=== PATIENT | female | born 1985 | race Caucasian/White ===

== ENCOUNTER 2023-05-12 14:13 | Inpatient (IN) ==
[2023-05-12] MEDS ORDERED: NIFEdipine 10 MG CAP PO STA ×2 (15:13→19:43)
[2023-05-12] MEDS ORDERED: MAG SULFATE 4GM BOLUS FROM BAG IV ONE (15:26)
[2023-05-12 15:31] LABS: Basophils # (auto) 0.02 K/uL (0-0.2); Basophils % (auto) 0.2 %; Eosinophils # (auto) 0.03 K/uL (0-0.50); Eosinophils % (auto) 0.3 %; Hematocrit (blood only) 33.4 % (37.0-47.0); Hemoglobin 11.5 g/dl (12.0-16.0); Immature Granulocytes # (auto) 0.14 K/uL (0.01-0.20); Immature Granulocytes % (auto) 1.2 %; Lymphocytes # (auto) 1.61 K/uL (1.2-3.4); Lymphocytes % (auto) 13.9 %; Mean Corpuscular Hemoglobin 30.6 pg (25.0-34.0); Mean Corpuscular Hgb Conc 34.4 g/dL (32.0-36.0); Mean Corpuscular Volume 88.8 fL (80.0-100.0); Monocytes # (auto) 1.03 K/uL (0.11-0.59); Monocytes % (auto) 8.9 %; Neutrophils # (auto) 8.72 K/uL (1.40-6.50); Neutrophils % (auto) 75.5 %; Platelet Count 235 K/uL (130-400); RDW Standard Deviation 42.4 fL (36.4-46.3); Red Blood Count 3.76 M/uL (4.20-5.40); White Blood Count 11.55 K/ul (4.8-10.8)
[2023-05-12 15:48] LABS: Albumin Level 3.1 gm/dl (3.4-5.0); BUN Creatinine Ratio 14.3 (10-20); Bilirubin,Total 0.3 mg/dl (0.2-1.0); Calcium 9.3 mg/dl (8.6-10.3); Creatinine Clr Calc Pharmacy 282.5 ml/min; Est GFR (Non-African American) 120.8 ml/min; Globulin 3.2 gm/dl (2.5-4.0); Potassium 4.4 mmol/L (3.5-5.1); Total Protein 6.3 gm/dl (6.0-8.3)
[2023-05-12] MEDS: MAGNESIUM SULFATE / WTR 40 GM/1,000 ML BAG IV SCH (16:13)
[2023-05-12] MEDS: LACTATED RINGER'S 1,000 ML IV PRN (16:13)
[2023-05-12 16:19] LABS: Total Protein Urine Random 166.8 mg/dl (0-11.9)
[2023-05-12 16:24] LABS: Creatinine Urine Random 24.9 mg/dl; Protein Creatinine Ratio Urine 6.7 (0-0.2)
[2023-05-12] MEDS ORDERED: OXYTOCIN 30 UNITS/500 ML BAG IV PRN (17:17)
[2023-05-12] MEDS ORDERED: LIDOCAINE 1% LOCAL 20 ML VIAL INFIL PRN (17:17)
[2023-05-12] MEDS: OXYTOCIN 30 UNITS/500 ML BAG IV PRN (17:34)
--- NOTE | 2023-05-12 17:35 | History & Physical Report ---
Date of Service May 12, 2023 Assessment & Plan (1) Pre-eclampsia in third trimester: Plan: patient meets criteria for pre-eclampsia with severe features urine protein/creatinine ratio is 6.8 will begin IOL- cervical balloon successfully placed and pitocin induction has been started MgSO4 bolus and now 2gms infusion running. will do GBS and start PCN G prophylaxis pending results epidural analgesia when requested as long as platelet count remains WNL. anticipate vaginal History of Present Illness Primary Care Provider: Marilynn Avila Patient is a 37 yo female EDC 06/12/23 who presented to the office for her scheduled NSt at 35 4/7 weeks and was found to have elevated BP of 148/102 after resting for at least 5 minutes. she was also found to have 2+ proteinuria. She denies any PET symptoms. She did have a mild headache this weekend which resolved without meds. Elevated BP and 2+ proteinuria is confirmed on evaluation in L&D. She received 20mg Nifedipine after 2 BP's were in the severe range. BP then came down to 160/92 and on repeat it was 133/82. was complicated by obesity and AMA status. testing has been reassuring. GBS status is unknown as it was to be done next week. Allergies Allergy/AdvReac Type Severity Reaction Status Date / Time acetaminophen [From Vicodin] Allergy Verified 05/08/23 13:59 hydrocodone [From Vicodin] Allergy Verified 05/08/23 13:59 hydromorphone [From Dilaudid] Allergy Verified 05/08/23 13:59 Home Medications Medication Instructions Recorded Confirmed Type cholecalciferol (vitamin D3) 10,000 PO 03/04/23 05/08/23 History citalopram 20 mg tablet 10 mg PO DAILY 03/04/23 05/12/23 History magnesium PO 03/04/23 05/08/23 History prenat.vits,valerie,vgj-lpcg-tbrxx 1 tab PO DAILY 03/04/23 05/12/23 History famotidine 10 mg tablet 10 mg PO DAILY 05/12/23 05/12/23 History Patient History Surgical History S/P ACL repair S/P wisdom tooth extraction Family History Father Melanoma Hypertension Other Epilepsy Social History Smoking Status: Never smoker Do You Dip or Chew Tobacco: No; Hx Alcohol Use: No Hx Substance Use: No Preferred Language: Israeli Communication Ability: Effective Brush Maker Required: No Beliefs That Will Affect Care: None marital status: marital status details: Hao Tejeda (37) [phone] Current Living Situation: Spouse Current Living Situation Comment: lives with spouse, 2 cats, dogs, horses, spouse to change litter current occupational status: unemployed Feels Safe at Home: Yes Safety Concerns: Feels Safe At This Time Review of Systems All systems reviewed & are unremarkable except as noted in HPI & below Physical Exam Constitutional: WD/WN, vitals as above Psychiatric: A+Ox3, euthymic affect Genitourinary: OB Exam Abdomen: + vertex and + estimated weight (5-6 pounds); no irregular contractions Manual OB Exam: + cervical dilation fingertip, + cervical effacement 50% and + station high (-3) OB Exam Monitor Tracing: + external FHT monitor used, + external uterine monitor used, + category I and + normal FHT variability patient agrees to placement of cervical balloon - speculum was placed vaginally and cervix visualized. the barnhart catheter was inserted into the internal os and 40 cc's of sterile water placed in the balloon. the catheter was then placed on traction and secured to her right thigh. patient tolerated the procedure well. Results & Data Vital Signs (Past 12 Hours) Vital Signs Temp Pulse Resp BP Pulse Ox 05/12/23 16:00 18 05/12/23 15:50 18 05/12/23 14:41 99.0 F 05/12/23 17:18 104 H 99 05/12/23 17:13 105 H 98 05/12/23 17:08 112 H 175/99 H 99 05/12/23 17:03 109 H 99 05/12/23 16:58 108 H 98 05/12/23 16:50 99 H 98 05/12/23 16:45 102 H 99 05/12/23 16:40 105 H 99 05/12/23 16:39 105 H 141/78 H 05/12/23 16:35 110 H 99 05/12/23 16:30 107 H 18 99 05/12/23 16:25 109 H 99 05/12/23 16:23 110 H 133/81 05/12/23 16:20 107 H 98 05/12/23 16:15 106 H 97 05/12/23 16:10 106 H 97 05/12/23 16:08 106 H 132/80 05/12/23 16:05 107 H 98 05/12/23 16:00 112 H 99 05/12/23 15:55 103 H 99 05/12/23 15:53 102 H 140/82 05/12/23 15:38 89 162/92 H 05/12/23 15:11 98 H 203/109 H 05/12/23 15:02 85 184/108 H 05/12/23 14:31 90 185/117 H Coding Level of Care Code None Diagnoses Pre-eclampsia in third trimester O14.93
[2023-05-12] MEDS ORDERED: PENICILLIN G POTASSIUM 6 MU in DEXTROSE 5% 250 ML IV ONE (18:00)
[2023-05-12] MEDS ORDERED: LABETALOL HCL IV 5 MG/ML 20ML IV STA (20:27)
--- NOTE | 2023-05-12 20:27 | Labor Progress Brief Note ---
Date of Service May 12, 2023 Subjective Patient and FOB met in 422. C/O headache currently and would like tylenol. No RUQ pain, vision changes or other complaints. Procardia immediate release given several hours ago x1 dose with response. BP was elevated again just recently at 162/96, so a repeat dose of Procardia 20mg was given just about ten minutes prior to my arrival in the room. At ten minutes after dose, no significant response yet; 167/99 currently. Admitted with preeclampsia with severe features, and currently on magnesium, pitocin, has barnhart balloon in the cervix placed by Dr. Delatorre, and has Barnhart in the bladder. On PCN for GBS unknown at gestational age, and peds aware of impending delivery. GBS culture pending currently. Patient remains notably cheerful and energetic. Questions asked by patient and FOB answered regarding plan of care, discussed plans for epidural and her desire to minimize risk of GETA at any point (so will likely secure epidural earlier in the labor process rather than later). Assessment & Plan (1) Pre-eclampsia in third trimester: Plan: Continue IOL, continue Magnesium. Management of acute BP will move to Labetalol as next agent if required. Next BP check 152/87 so appears to be responding to procardia; will observe. Admission and Anticipated Discharge Date Admission Date: May 12, 2023 Physical Exam Genitourinary: Exam per Dr. Delatorre at time of barnhart placement, 0.5cm. Not re-examined at this time as Barnhart in situ. Pit @ 4. [place] Q3min. FHT Cat 1. Barnhart cath in bladder draining clear yellow. Results & Data Vital Signs (Past 12 Hours) Vital Signs Temp Pulse Resp BP Pulse Ox 05/12/23 19:03 97.7 F 20 05/12/23 19:03 20 05/12/23 18:00 18 05/12/23 17:00 18 05/12/23 16:00 18 05/12/23 15:50 18 05/12/23 14:41 99.0 F 05/12/23 20:18 102 H 99 05/12/23 20:13 100 H 98 05/12/23 20:08 101 H 99 05/12/23 20:09 95 H 167/99 H 05/12/23 20:03 95 H 99 05/12/23 19:58 99 H 99 05/12/23 19:53 102 H 99 05/12/23 19:48 99 H 99 05/12/23 19:43 101 H 99 05/12/23 19:38 95 H 96 05/12/23 19:39 100 H 162/96 H 05/12/23 19:33 104 H 97 05/12/23 19:28 101 H 96 05/12/23 19:23 104 H 98 05/12/23 19:18 102 H 98 05/12/23 19:13 104 H 98 05/12/23 19:08 106 H 99 05/12/23 19:03 104 H 97 05/12/23 18:58 99 H 97 05/12/23 18:53 102 H 98 05/12/23 18:48 95 H 97 05/12/23 18:43 108 H 98 05/12/23 18:38 98 05/12/23 18:38 105 H 05/12/23 18:38 96 H 165/92 H 05/12/23 18:33 101 H 100 05/12/23 18:28 101 H 100 05/12/23 18:23 102 H 100 05/12/23 18:18 100 H 98 05/12/23 18:13 91 H 98 05/12/23 18:08 96 H 98 05/12/23 18:03 97 H 98 05/12/23 17:58 98 H 98 05/12/23 17:53 102 H 98 05/12/23 17:48 101 H 98 05/12/23 17:43 98 H 98 05/12/23 17:38 102 H 98 05/12/23 17:33 99 H 98 05/12/23 17:28 100 H 98 05/12/23 17:23 99 05/12/23 17:23 106 H 05/12/23 17:23 106 H 151/83 H 05/12/23 17:18 104 H 99 05/12/23 17:13 105 H 98 05/12/23 17:08 112 H 175/99 H 99 05/12/23 17:03 109 H 99 05/12/23 16:58 108 H 98 05/12/23 16:50 99 H 98 05/12/23 16:45 102 H 99 05/12/23 16:40 105 H 99 05/12/23 16:39 105 H 141/78 H 05/12/23 16:35 110 H 99 05/12/23 16:30 107 H 18 99 05/12/23 16:25 109 H 99 05/12/23 16:23 110 H 133/81 05/12/23 16:20 107 H 98 05/12/23 16:15 106 H 97 05/12/23 16:10 106 H 97 05/12/23 16:08 106 H 132/80 05/12/23 16:05 107 H 98 05/12/23 16:00 112 H 99 05/12/23 15:55 103 H 99 05/12/23 15:53 102 H 140/82 05/12/23 15:38 89 162/92 H 05/12/23 15:11 98 H 203/109 H 05/12/23 15:02 85 184/108 H 05/12/23 14:31 90 185/117 H Coding Level of Care Code None Diagnoses Pre-eclampsia in third trimester O14.93
[2023-05-12] MEDS: ACETAMINOPHEN 325 MG TAB PO PRN (20:40)
[2023-05-12] MEDS: PENICILLIN G POTASSIUM 3 MU in DEXTROSE 5% 100 ML IV PRN (22:05)
[2023-05-13] MEDS: ACETAMINOPHEN 325 MG TAB PO PRN ×3 (00:41→18:35)
[2023-05-13 01:08] LABS: Basophils # (auto) 0.03 K/uL (0-0.2); Basophils % (auto) 0.2 %; Hematocrit (blood only) 35.3 % (37.0-47.0); Hemoglobin 12.5 g/dl (12.0-16.0); Immature Granulocytes # (auto) 0.17 K/uL (0.01-0.20); Lymphocytes # (auto) 1.11 K/uL (1.2-3.4); Lymphocytes % (auto) 6.4 %; Mean Corpuscular Hemoglobin 30.9 pg (25.0-34.0); Mean Corpuscular Hgb Conc 35.4 g/dL (32.0-36.0); Mean Corpuscular Volume 87.2 fL (80.0-100.0); Mean Platelet Volume 11.7 fL (9.4-12.4); Monocytes # (auto) 1.05 K/uL (0.11-0.59); Neutrophils % (auto) 86.4 %; Platelet Count 260 K/uL (130-400); RDW Coefficient of Variation 12.8 % (11.5-14.5); RDW Standard Deviation 40.5 fL (36.4-46.3); Red Blood Count 4.05 M/uL (4.20-5.40); White Blood Count 17.36 K/ul (4.8-10.8)
[2023-05-13] MEDS: PENICILLIN G POTASSIUM 3 MU in DEXTROSE 5% 100 ML IV PRN ×6 (02:02→21:59)
[2023-05-13] MEDS: LACTATED RINGER'S 1,000 ML IV PRN ×2 (04:51→16:15)
--- NOTE | 2023-05-13 06:31 | Obstetrical Progress Note ---
Date of Service May 13, 2023 Assessment & Plan (1) Pre-eclampsia in third trimester: Plan: IOL for severe preeclampsia. On Mag. No anti-hypertensive required since 2nd dose procardia yesterday evening. Making progress, barnhart balloon out as of 4am. Will request epidural around 0830 to enable AROM at next check if felt to be appropriate on next exam, after discussing with patient and FOB. Admission and Anticipated Discharge Date Admission Date: May 12, 2023 Subjective Resident note, with MD additions. Resident rounded after 6am. MD visited patient at 7:45am. Patient denies any blurry or double vision, RUQ pain, any headache, facial flushing, shortness of breath, muscles weakness. (Resident). For MD, patient with mild headache far less severe than yesterday per patient. Review of Systems Respiratory: no dyspnea Cardiovascular: no chest pain and no palpitations Gastrointestinal: no abdominal pain (no RUQ or other pain) Musculoskeletal: no myalgia and no body aches Integumentary: no rash and no pruritus Neurologic: + numbness (background numbness of r. hand) and + headache(s) (min or headache) Psychiatric: + difficulty concentrating; no confusion Physical Exam Genitourinary: 3/50/-2 (posterior, soft) FHT Cat 1 [place] with either rare ctx or poorly traced. Recently adjusted by KISHOR Chavez. No LOF, no VB. Pit @ 14. Results & Data Vital Signs (Past 12 Hours) Vital Signs Temp Pulse Resp BP Pulse Ox 05/13/23 06:05 16 05/13/23 05:05 18 05/13/23 04:15 20 05/13/23 03:45 20 05/13/23 02:00 18 05/13/23 01:05 16 05/13/23 00:00 18 05/12/23 23:05 18 05/12/23 22:05 20 05/12/23 21:10 18 05/12/23 20:05 18 05/12/23 19:03 36.5 C 20 05/12/23 19:03 20 05/13/23 06:18 88 94 05/13/23 06:13 81 95 05/13/23 06:08 93 H 95 05/13/23 06:03 98 H 94 05/13/23 06:04 93 H 126/74 05/13/23 05:58 83 94 05/13/23 05:53 80 94 05/13/23 05:48 79 94 05/13/23 05:43 80 94 05/13/23 05:38 77 94 05/13/23 05:33 79 93 05/13/23 05:34 80 123/67 05/13/23 05:28 89 95 05/13/23 05:23 84 96 05/13/23 05:18 83 96 05/13/23 05:13 96 H 99 05/13/23 05:08 84 98 05/13/23 05:03 97 H 99 05/13/23 05:04 96 H 138/84 05/13/23 04:58 94 H 99 05/13/23 04:53 94 H 97 05/13/23 04:48 93 H 96 05/13/23 04:47 94 H 91 05/13/23 04:43 101 H 95 05/13/23 04:41 97 H 94 05/13/23 04:38 87 97 05/13/23 04:33 94 H 94 05/13/23 04:34 100 H 139/86 05/13/23 04:28 93 H 97 05/13/23 04:23 93 H 98 05/13/23 04:18 111 H 100 05/13/23 04:10 36.6 C 05/13/23 04:13 97 H 99 05/13/23 04:08 101 H 97 05/13/23 04:03 100 H 98 05/13/23 04:04 97 H 133/74 05/13/23 03:58 90 96 05/13/23 03:53 92 H 97 05/13/23 03:48 100 H 98 05/13/23 03:43 90 97 05/13/23 03:38 94 H 98 05/13/23 03:33 93 H 98 05/13/23 03:34 92 H 127/76 05/13/23 03:28 96 H 98 05/13/23 03:23 94 H 97 05/13/23 03:18 98 H 98 05/13/23 03:13 96 H 98 05/13/23 03:08 98 H 98 05/13/23 03:04 99 H 149/90 H 05/13/23 03:03 107 H 98 05/13/23 02:58 111 H 100 05/13/23 02:53 105 H 98 05/13/23 02:48 102 H 99 05/13/23 02:43 101 H 99 05/13/23 02:38 104 H 99 05/13/23 02:34 99 H 139/76 05/13/23 02:33 102 H 99 05/13/23 02:28 102 H 98 05/13/23 02:23 96 H 97 05/13/23 02:18 97 H 97 05/13/23 02:13 100 H 99 05/13/23 02:08 99 H 99 05/13/23 02:03 100 H 98 05/13/23 02:04 97 H 133/75 05/13/23 01:58 92 H 98 05/13/23 01:53 96 H 98 05/13/23 01:48 92 H 97 05/13/23 01:43 99 H 98 05/13/23 01:38 92 H 98 05/13/23 01:33 99 H 97 05/13/23 01:28 96 H 97 05/13/23 01:23 90 96 05/13/23 01:18 88 97 05/13/23 01:13 93 H 98 05/13/23 01:08 92 H 98 05/13/23 01:03 88 98 05/13/23 01:04 86 124/69 05/13/23 00:58 95 H 98 05/13/23 00:53 100 H 98 05/13/23 00:48 93 H 97 05/13/23 00:43 98 H 98 05/13/23 00:38 96 H 98 05/13/23 00:33 92 H 97 05/13/23 00:34 100 H 131/77 05/13/23 00:28 95 H 96 05/13/23 00:23 106 H 96 05/13/23 00:22 100 H 94 05/13/23 00:18 90 97 05/13/23 00:13 95 H 96 05/13/23 00:08 101 H 97 05/13/23 00:03 92 H 96 05/13/23 00:04 90 122/66 05/12/23 23:58 92 H 97 05/12/23 23:53 90 96 05/12/23 23:48 101 H 96 05/12/23 23:43 96 H 95 05/12/23 23:38 99 H 96 05/12/23 23:33 103 H 97 05/12/23 23:32 101 H 142/93 H 05/12/23 23:10 36.8 C 05/12/23 23:28 104 H 96 05/12/23 23:23 106 H 97 05/12/23 23:18 98 H 97 05/12/23 23:13 112 H 98 05/12/23 23:08 108 H 138/100 97 05/12/23 23:03 105 H 97 05/12/23 22:58 113 H 97 05/12/23 22:53 111 H 96 05/12/23 22:48 106 H 97 05/12/23 22:43 104 H 97 05/12/23 22:38 108 H 97 05/12/23 22:33 95 H 97 05/12/23 22:28 97 H 97 05/12/23 22:23 99 H 99 05/12/23 22:18 101 H 98 05/12/23 22:13 102 H 99 05/12/23 22:08 94 H 98 05/12/23 22:03 95 H 98 05/12/23 21:58 95 H 98 05/12/23 21:53 101 H 99 05/12/23 21:48 92 H 97 05/12/23 21:45 97 H 127/71 05/12/23 21:43 98 H 98 05/12/23 21:38 98 H 97 05/12/23 21:33 95 H 97 05/12/23 21:28 102 H 98 05/12/23 21:23 95 H 97 05/12/23 21:18 93 H 97 05/12/23 21:13 96 H 96 05/12/23 21:08 101 H 97 05/12/23 21:03 99 H 98 05/12/23 20:58 97 H 99 05/12/23 20:53 101 H 98 05/12/23 20:48 102 H 98 05/12/23 20:43 105 H 98 05/12/23 20:38 93 H 96 05/12/23 20:33 100 H 97 05/12/23 20:28 98 05/12/23 20:28 97 H 05/12/23 20:28 94 H 152/87 H 05/12/23 20:23 99 H 98 05/12/23 20:18 102 H 99 05/12/23 20:13 100 H 98 05/12/23 20:08 101 H 99 05/12/23 20:09 95 H 167/99 H 05/12/23 20:03 95 H 99 05/12/23 19:58 99 H 99 05/12/23 19:53 102 H 99 05/12/23 19:48 99 H 99 05/12/23 19:43 101 H 99 05/12/23 19:38 95 H 96 05/12/23 19:39 100 H 162/96 H 05/12/23 19:33 104 H 97 05/12/23 19:28 101 H 96 05/12/23 19:23 104 H 98 05/12/23 19:18 102 H 98 05/12/23 19:13 104 H 98 05/12/23 19:08 106 H 99 05/12/23 19:03 104 H 97 05/12/23 18:58 99 H 97 05/12/23 18:53 102 H 98 05/12/23 18:48 95 H 97 05/12/23 18:43 108 H 98 05/12/23 18:38 98 05/12/23 18:38 105 H 05/12/23 18:38 96 H 165/92 H 05/12/23 18:33 101 H 100 05/12/23 18:28 101 H 100 05/12/23 18:23 102 H 100 PG Care Time/CCT Total # of Minutes Spent Total Time Spent with Patient: Total time spent is greater than 50% in coordination of care (as documented) at patient's floor/unit and/or counseling patient: Coding Level of Care Code None Diagnoses Pre-eclampsia in third trimester O14.93
[2023-05-13] MEDS ORDERED: fentaNYL citrate PF 100 MCG/2 ML VIAL ONE (08:45)
[2023-05-13] MEDS ORDERED: SODIUM CHLORIDE 0.9% PF INJ 10 ML VIAL ONE (08:46)
[2023-05-13] MEDS ORDERED: fentaNYL 2MCG/ML ROPIVACAINE 1.25MG/ML 100 ML BAG EPI ONE (08:46)
[2023-05-13] MEDS ORDERED: LIDOCAINE 2%/EPINEPHRINE 1:200,000 20 ML PF ONE (08:46)
[2023-05-13] MEDS ORDERED: BUPIVACAINE 0.25% PF 30 ML VIAL ONE (08:46)
[2023-05-13] MEDS ORDERED: ePHEDrine sulfate 50 MG/ML AMP ONE (08:46)
[2023-05-13] MEDS: CITALOPRAM 20 MG TAB PO SCH (08:57)
--- NOTE | 2023-05-13 09:03 | Anesthesiology Consultation ---
Date of Service May 13, 2023 Assessment & Plan (1) Encounter for pre-operative examination: Chart Review Chart Review: Acceptable Risk for Labor Epidural History Height/Weight Height: 5 ft 4 in Weight: 107.726 kg Allergies Allergy/AdvReac Type Severity Reaction Status Date / Time acetaminophen [From Vicodin] Allergy Verified 05/08/23 13:59 hydrocodone [From Vicodin] Allergy Verified 05/08/23 13:59 hydromorphone [From Dilaudid] Allergy Verified 05/08/23 13:59 Medications Home Medications Medication Instructions Recorded Confirmed Last Taken cholecalciferol (vitamin D3) 10,000 PO 03/04/23 05/08/23 05/12/23 08:00 citalopram 20 mg tablet 10 mg PO DAILY 03/04/23 05/12/23 05/12/23 08:00 magnesium PO 03/04/23 05/08/23 05/09/23 prenat.vits,valerie,ufx-oqud-hhows 1 tab PO DAILY 03/04/23 05/12/23 05/12/23 08:00 famotidine 10 mg tablet 10 mg PO DAILY 05/12/23 05/12/23 05/11/23 20:00 Active Medications Generic Name Dose Route Start Last Admin Trade Name Freq PRN Reason Stop Dose Admin Acetaminophen 650 mg 05/12/23 20:29 05/13/23 04:54 Acetaminophen 325 Mg Tab PO 06/11/23 20:28 650 mg Q4H PRN Administration headache Citalopram Hydrobromide 10 mg 05/13/23 09:00 05/13/23 08:57 Citalopram 20 Mg Tab PO 06/12/23 08:59 10 mg DAILY MARÍA ELENA Administration Magnesium Sulfate 40 gm in 1,000 mls @ 50 mls/hr 05/12/23 15:30 05/13/23 07:03 Magnesium Sulfate / Wtr IV 06/11/23 15:29 50 mls/hr .Q20H MARÍA ELENA Infusion Oxytocin 30 units in 500 mls @ 18 mls/hr 05/12/23 16:20 05/13/23 08:30 Pitocin IV 05/14/23 16:19 1.08 units/hr .Q24H PRN 18 mls/hr Labor Induction/Augmentation Titration Protocol 1.08 UNITS/HR Lactated Ringer's 1,000 mls @ 125 mls/hr 05/12/23 17:17 05/13/23 07:03 Lr IV 05/14/23 17:16 75 mls/hr .Q8H PRN Infusion L&D Protocol Protocol Penicillin G Potassium 3 mu/ 106 mls @ 100 mls/hr 05/12/23 20:17 05/13/23 06:00 Dextrose IV 05/22/23 20:16 100 mls/hr Q4H PRN Administration GBS(+) Until Delivery Past Medical History Medical History (Updated 05/13/23 @ 09:03 by Valdo Rubio MD) Obesity affecting Pre-eclampsia in third trimester Past Family History Family History Father Melanoma Hypertension Other Epilepsy Past Surgical History Surgical History S/P ACL repair S/P wisdom tooth extraction Social History Smoking Status: Never smoker Do You Dip or Chew Tobacco: No Hx Alcohol Use: No Hx Substance Use: No Physical Exam Vital Signs Last Vital Signs Temp 36.7 C 05/13/23 07:15 Pulse 102 H 05/13/23 08:58 Resp 16 05/13/23 08:00 BP 125/74 05/13/23 08:34 Pulse Ox 98 05/13/23 08:58 O2 Del Method Room Air 05/13/23 07:19 Testing Laboratory Results 05/13/23 00:37 05/12/23 15:06
[2023-05-13] MEDS ORDERED: BUPIVACAINE 0.25% PF 30 ML VIAL EPI STA (09:37)
[2023-05-13] MEDS ORDERED: fentaNYL citrate PF 100 MCG/2 ML VIAL EPI STA (09:37)
[2023-05-13] MEDS ORDERED: LIDOCAINE 2% MPF LOCAL 5 ML VIAL EPI PRN (09:37)
[2023-05-13] MEDS ORDERED: BUPIVACAINE 0.25% PF 30 ML VIAL EPI PRN (09:37)
[2023-05-13] MEDS ORDERED: fentaNYL citrate PF 100 MCG/2 ML VIAL EPI PRN (09:37)
[2023-05-13] MEDS ORDERED: NALOXONE HCL 0.4 MG/1 ML VIAL/CARP IV PRN (09:37)
[2023-05-13] MEDS ORDERED: ONDANSETRON INJ 2 MG/ML 2 ML VIAL IV PRN (09:37)
[2023-05-13] MEDS ORDERED: ROPIVACAINE 0.5% PF 5 MG/ML 20 ML VIAL EPI PRN (09:37)
[2023-05-13] MEDS ORDERED: LIDOCAINE 2%/EPINEPHRINE 1:200,000 20 ML PF EPI STA (09:37)
[2023-05-13] MEDS ORDERED: NALOXONE HCL 1 MG in SODIUM CHLORIDE 0.9% 1000ML 1,000 ML IV PRN (09:37)
[2023-05-13] MEDS ORDERED: SODIUM CHLORIDE 0.9% PF INJ 10 ML VIAL EPI STA (09:37)
[2023-05-13] MEDS ORDERED: SODIUM CHLORIDE 0.9% PF INJ 10 ML VIAL EPI PRN (09:37)
[2023-05-13] MEDS ORDERED: fentaNYL 2MCG/ML ROPIVACAINE 1.25MG/ML 100 ML BAG EPI PRN (09:37)
[2023-05-13] MEDS ORDERED: ePHEDrine sulfate 50 MG/ML AMP IV PRN (09:37)
[2023-05-13] MEDS: MAGNESIUM SULFATE / WTR 40 GM/1,000 ML BAG IV SCH (09:48)
--- NOTE | 2023-05-13 11:01 | Labor Progress Brief Note ---
Date of Service May 13, 2023 Subjective Reason For Note: Routine Evaluation comfortable with epidural analgesia Review of Systems All systems reviewed & are unremarkable except as noted in HPI & below Assessment & Plan (1) Pre-eclampsia in third trimester: Plan: pitocin at 20 milliunits AROM successful for moderate amount of clear fluid continue current labor plan Admission and Anticipated Discharge Date Admission Date: May 12, 2023 Physical Exam Constitutional: WD/WN, vitals as above Psychiatric: A+Ox3, euthymic affect Genitourinary: Manual OB Exam: + cervical dilation 4 cm, + cervical effacement 70%, + station high (-3) and + amniotic fluid clear (AROM ) OB Exam Monitor Tracing: + external FHT monitor used, + external uterine monitor used, + category I and + normal FHT variability Results & Data Vital Signs (Past 12 Hours) Vital Signs Temp Pulse Resp BP Pulse Ox O2 Del Method 05/13/23 07:15 98.1 F 18 05/13/23 07:19 18 05/13/23 07:19 Room Air 05/13/23 06:05 16 05/13/23 05:05 18 05/13/23 04:15 20 05/13/23 03:45 20 05/13/23 02:00 18 05/13/23 01:05 16 05/13/23 00:00 18 05/12/23 23:05 18 05/13/23 10:54 95 H 110/68 05/13/23 10:53 94 H 100 05/13/23 10:52 94 H 74 L 05/13/23 10:48 85 98 05/13/23 10:43 89 95 05/13/23 10:39 103 H 108/59 L 05/13/23 10:38 80 92 05/13/23 09:01 18 05/13/23 09:01 18 05/13/23 08:59 16 05/13/23 08:59 16 05/13/23 09:59 18 05/13/23 09:59 18 05/13/23 10:33 79 93 05/13/23 10:28 80 93 05/13/23 10:26 71 108/61 05/13/23 10:23 78 93 05/13/23 10:18 80 98 05/13/23 10:13 78 93 05/13/23 10:10 80 104/57 L 05/13/23 10:08 72 94 05/13/23 10:03 84 95 05/13/23 09:58 87 98 05/13/23 09:53 101 H 121/78 97 05/13/23 09:54 94 H 125/78 05/13/23 09:52 112 H 91 05/13/23 09:51 89 108/64 05/13/23 09:48 91 H 100 05/13/23 09:47 86 107/62 05/13/23 09:45 91 H 106/63 05/13/23 09:43 89 99/57 L 99 05/13/23 09:41 86 99/58 L 05/13/23 09:40 86 108/63 05/13/23 09:38 100 H 100 05/13/23 09:37 97 H 124/75 05/13/23 09:35 95 H 132/85 05/13/23 09:33 90 140/85 100 05/13/23 09:32 95 H 153/93 H 05/13/23 09:28 100 H 99 05/13/23 09:23 103 H 99 05/13/23 09:18 95 H 100 05/13/23 09:13 93 H 100 05/13/23 09:08 98 H 100 05/13/23 09:03 95 H 99 05/13/23 09:04 91 H 142/81 H 05/13/23 08:58 102 H 98 05/13/23 08:53 99 H 100 05/13/23 08:48 103 H 100 05/13/23 08:43 97 H 98 05/13/23 08:38 90 100 05/13/23 08:33 93 H 99 05/13/23 08:34 96 H 125/74 05/13/23 08:28 94 H 99 05/13/23 08:23 101 H 100 05/13/23 08:18 95 H 100 05/13/23 08:00 16 05/13/23 08:00 16 05/13/23 08:13 93 H 99 05/13/23 08:08 98 H 100 05/13/23 08:04 90 130/70 05/13/23 08:03 100 H 99 05/13/23 07:58 89 99 05/13/23 07:53 92 H 99 05/13/23 07:48 89 100 05/13/23 07:43 101 H 100 05/13/23 07:38 87 97 05/13/23 07:34 86 141/83 H 05/13/23 07:33 88 100 05/13/23 07:28 94 H 98 05/13/23 07:23 94 H 96 05/13/23 07:18 92 H 98 05/13/23 07:13 90 100 05/13/23 07:08 94 H 99 05/13/23 07:04 91 H 144/89 H 05/13/23 07:03 92 H 99 05/13/23 06:58 91 H 98 05/13/23 06:53 96 H 98 05/13/23 06:48 96 H 99 05/13/23 06:43 92 H 98 05/13/23 06:38 94 H 99 05/13/23 06:35 90 140/89 05/13/23 06:33 96 H 99 05/13/23 06:28 98 H 99 05/13/23 06:23 99 H 98 05/13/23 06:18 88 94 05/13/23 06:13 81 95 05/13/23 06:08 93 H 95 05/13/23 06:03 98 H 94 05/13/23 06:04 93 H 126/74 05/13/23 05:58 83 94 05/13/23 05:53 80 94 05/13/23 05:48 79 94 05/13/23 05:43 80 94 05/13/23 05:38 77 94 05/13/23 05:33 79 93 05/13/23 05:34 80 123/67 05/13/23 05:28 89 95 05/13/23 05:23 84 96 05/13/23 05:18 83 96 05/13/23 05:13 96 H 99 05/13/23 05:08 84 98 05/13/23 05:03 97 H 99 05/13/23 05:04 96 H 138/84 05/13/23 04:58 94 H 99 05/13/23 04:53 94 H 97 05/13/23 04:48 93 H 96 05/13/23 04:47 94 H 91 05/13/23 04:43 101 H 95 05/13/23 04:41 97 H 94 05/13/23 04:38 87 97 05/13/23 04:33 94 H 94 05/13/23 04:34 100 H 139/86 05/13/23 04:28 93 H 97 05/13/23 04:23 93 H 98 05/13/23 04:18 111 H 100 05/13/23 04:10 97.9 F 05/13/23 04:13 97 H 99 05/13/23 04:08 101 H 97 05/13/23 04:03 100 H 98 05/13/23 04:04 97 H 133/74 05/13/23 03:58 90 96 05/13/23 03:53 92 H 97 05/13/23 03:48 100 H 98 05/13/23 03:43 90 97 05/13/23 03:38 94 H 98 05/13/23 03:33 93 H 98 05/13/23 03:34 92 H 127/76 05/13/23 03:28 96 H 98 05/13/23 03:23 94 H 97 05/13/23 03:18 98 H 98 05/13/23 03:13 96 H 98 05/13/23 03:08 98 H 98 05/13/23 03:04 99 H 149/90 H 05/13/23 03:03 107 H 98 05/13/23 02:58 111 H 100 05/13/23 02:53 105 H 98 05/13/23 02:48 102 H 99 05/13/23 02:43 101 H 99 05/13/23 02:38 104 H 99 05/13/23 02:34 99 H 139/76 05/13/23 02:33 102 H 99 05/13/23 02:28 102 H 98 05/13/23 02:23 96 H 97 05/13/23 02:18 97 H 97 05/13/23 02:13 100 H 99 05/13/23 02:08 99 H 99 05/13/23 02:03 100 H 98 05/13/23 02:04 97 H 133/75 05/13/23 01:58 92 H 98 05/13/23 01:53 96 H 98 05/13/23 01:48 92 H 97 05/13/23 01:43 99 H 98 05/13/23 01:38 92 H 98 05/13/23 01:33 99 H 97 05/13/23 01:28 96 H 97 05/13/23 01:23 90 96 05/13/23 01:18 88 97 05/13/23 01:13 93 H 98 05/13/23 01:08 92 H 98 05/13/23 01:03 88 98 05/13/23 01:04 86 124/69 05/13/23 00:58 95 H 98 05/13/23 00:53 100 H 98 05/13/23 00:48 93 H 97 05/13/23 00:43 98 H 98 05/13/23 00:38 96 H 98 05/13/23 00:33 92 H 97 05/13/23 00:34 100 H 131/77 05/13/23 00:28 95 H 96 05/13/23 00:23 106 H 96 05/13/23 00:22 100 H 94 05/13/23 00:18 90 97 05/13/23 00:13 95 H 96 05/13/23 00:08 101 H 97 05/13/23 00:03 92 H 96 05/13/23 00:04 90 122/66 05/12/23 23:58 92 H 97 05/12/23 23:53 90 96 05/12/23 23:48 101 H 96 05/12/23 23:43 96 H 95 05/12/23 23:38 99 H 96 05/12/23 23:33 103 H 97 05/12/23 23:32 101 H 142/93 H 05/12/23 23:10 98.2 F 05/12/23 23:28 104 H 96 05/12/23 23:23 106 H 97 05/12/23 23:18 98 H 97 05/12/23 23:13 112 H 98 05/12/23 23:08 108 H 138/100 97 05/12/23 23:03 105 H 97
--- NOTE | 2023-05-13 21:40 | Labor Progress Brief Note ---
Date of Service May 13, 2023 Subjective Reason For Note: Routine Evaluation feeling more pressure in pelvis contractions still q 5 minutes but no closer since pitocin has been on 30 milliunits for an hours time FHT are still reactive. cervix 5 cm/90/-3 minimal cervical change but contraction pattern still inadequate for significant cervical change will try doing pitocin wash out for 30 minutes and restart pitocin at 16 milliunits. if we still cannot achieve a better contraction pattern- will proceed with LTCS. Patient and her are agreeable to this plan. Assessment & Plan Admission and Anticipated Discharge Date Admission Date: May 12, 2023 Results & Data Vital Signs (Past 12 Hours) Vital Signs Temp Pulse Resp BP Pulse Ox 05/13/23 20:15 18 05/13/23 19:15 18 05/13/23 10:00 16 05/13/23 21:33 87 97 05/13/23 21:28 91 H 98 05/13/23 21:26 86 137/84 05/13/23 21:23 92 H 100 05/13/23 21:18 85 96 05/13/23 21:13 80 95 05/13/23 21:11 81 137/80 05/13/23 21:08 86 97 05/13/23 21:03 87 97 05/13/23 20:58 89 96 05/13/23 20:54 91 H 154/79 H 05/13/23 20:53 95 H 98 05/13/23 20:48 96 H 98 05/13/23 20:43 89 98 05/13/23 20:39 88 141/74 H 05/13/23 20:38 92 H 100 05/13/23 20:33 92 H 99 05/13/23 20:28 91 H 99 05/13/23 20:25 83 143/75 H 05/13/23 20:23 89 99 05/13/23 20:18 96 H 100 05/13/23 19:27 97.7 F 05/13/23 20:13 85 100 05/13/23 20:08 92 H 100 05/13/23 20:03 89 99 05/13/23 19:58 85 99 05/13/23 19:53 91 H 100 05/13/23 19:54 96 H 140/73 05/13/23 19:48 88 97 05/13/23 19:43 87 99 08/08/23 19:39 99 H 129/71 05/13/23 19:38 88 98 05/13/23 19:33 90 100 05/13/23 19:28 104 H 100 05/13/23 19:23 81 96 05/13/23 19:24 86 139/76 05/13/23 19:18 82 96 05/13/23 19:13 80 97 05/13/23 19:09 79 137/69 05/13/23 19:08 82 98 05/13/23 19:03 85 99 05/13/23 19:02 82 151/74 H 05/13/23 18:58 92 H 100 05/13/23 18:55 104 H 185/97 H 05/13/23 18:53 90 100 05/13/23 18:48 86 100 05/13/23 18:01 16 05/13/23 18:01 16 05/13/23 18:43 84 96 05/13/23 18:39 92 H 125/75 05/13/23 18:38 95 H 99 05/13/23 18:33 82 97 05/13/23 18:28 85 94 05/13/23 18:24 85 121/63 05/13/23 18:23 85 95 05/13/23 18:18 83 99 05/13/23 18:13 91 H 98 05/13/23 18:09 81 121/64 05/13/23 18:08 87 98 05/13/23 18:03 85 96 05/13/23 17:58 84 16 96 05/13/23 17:54 83 123/66 05/13/23 17:53 89 98 05/13/23 17:48 93 H 97 05/13/23 17:43 92 H 97 05/13/23 17:39 89 124/61 05/13/23 17:38 94 H 98 05/13/23 17:33 106 H 99 05/13/23 17:28 87 97 05/13/23 17:24 88 121/64 05/13/23 17:23 87 96 05/13/23 17:18 91 H 98 05/13/23 17:13 98.1 F 85 16 94 05/13/23 17:08 82 94 05/13/23 17:09 89 114/61 05/13/23 17:03 88 95 05/13/23 16:58 88 97 05/13/23 16:54 85 124/69 05/13/23 16:53 86 96 05/13/23 16:48 94 H 100 05/13/23 16:43 86 98 05/13/23 16:40 86 138/80 05/13/23 16:38 86 94 05/13/23 16:33 83 97 05/13/23 16:28 84 97 05/13/23 16:24 86 136/76 05/13/23 16:23 90 98 05/13/23 16:18 89 100 05/13/23 16:13 87 98 05/13/23 16:08 94 H 16 100 05/13/23 16:09 84 135/80 05/13/23 16:03 95 H 99 05/13/23 15:58 93 H 97 05/13/23 15:55 92 H 133/81 05/13/23 15:53 88 97 05/13/23 15:48 103 H 99 05/13/23 15:43 99 H 100 05/13/23 15:40 100 H 148/79 H 05/13/23 15:38 98 H 98 05/13/23 15:33 95 H 99 05/13/23 15:28 88 98 05/13/23 15:24 85 137/81 05/13/23 15:23 87 98 05/13/23 15:18 88 97 05/13/23 15:13 85 99 05/13/23 15:09 80 139/83 05/13/23 15:08 85 97 05/13/23 15:03 97.7 F 88 18 98 05/13/23 14:58 91 H 97 05/13/23 14:54 80 143/88 H 05/13/23 14:53 81 97 05/13/23 14:48 92 H 98 05/13/23 14:43 94 H 100 05/13/23 14:39 88 138/82 05/13/23 14:38 89 97 05/13/23 14:33 81 93 05/13/23 14:28 80 92 05/13/23 14:24 91 H 05/13/23 14:23 85 91 05/13/23 14:24 92 H 123/71 91 05/13/23 14:00 16 05/13/23 14:00 16 05/13/23 14:18 90 93 05/13/23 14:17 77 91 05/13/23 14:13 80 92 05/13/23 14:09 84 121/69 05/13/23 14:08 77 92 05/13/23 14:03 81 97 05/13/23 13:58 86 97 05/13/23 13:53 79 95 05/13/23 13:54 83 117/64 05/13/23 13:48 87 98 05/13/23 13:43 86 96 05/13/23 13:15 98.4 F 05/13/23 13:39 76 112/59 L 05/13/23 13:38 88 92 05/13/23 13:33 85 99 05/13/23 13:28 84 98 05/13/23 13:23 89 98 05/13/23 13:24 85 118/64 05/13/23 13:18 80 96 05/13/23 13:00 16 05/13/23 13:00 16 05/13/23 13:13 81 98 05/13/23 13:09 80 125/62 05/13/23 13:08 82 97 05/13/23 13:03 82 97 05/13/23 12:58 89 100 05/13/23 12:55 83 132/79 05/13/23 12:53 94 H 99 05/13/23 12:48 84 99 05/13/23 12:43 85 99 05/13/23 12:39 80 124/69 05/13/23 12:38 83 100 05/13/23 12:33 86 99 05/13/23 12:28 85 100 05/13/23 12:25 81 125/70 05/13/23 12:23 83 99 05/13/23 12:18 83 100 05/13/23 12:01 18 05/13/23 12:01 18 05/13/23 12:13 88 97 05/13/23 12:09 85 124/72 05/13/23 12:08 88 98 05/13/23 12:03 87 100 05/13/23 11:58 82 99 05/13/23 11:54 88 131/75 05/13/23 11:53 86 98 05/13/23 11:48 85 98 05/13/23 11:43 84 99 05/13/23 11:39 86 122/74 05/13/23 11:38 84 99 05/13/23 11:33 87 100 05/13/23 11:28 86 99 05/13/23 11:05 16 05/13/23 11:05 97.9 F 16 05/13/23 11:24 90 128/77 05/13/23 11:23 96 H 99 05/13/23 11:18 90 96 05/13/23 11:13 87 99 05/13/23 11:09 83 114/71 05/13/23 11:08 82 100 05/13/23 11:03 82 100 05/13/23 10:58 85 100 05/13/23 10:54 95 H 110/68 05/13/23 10:53 94 H 100 05/13/23 10:52 94 H 74 L 05/13/23 10:48 85 98 05/13/23 10:43 89 95 05/13/23 10:39 103 H 108/59 L 05/13/23 10:38 80 92 05/13/23 09:59 18 05/13/23 09:59 18 05/13/23 10:33 79 93 05/13/23 10:28 80 93 05/13/23 10:26 71 108/61 05/13/23 10:23 78 93 05/13/23 10:18 80 98 05/13/23 10:13 78 93 05/13/23 10:10 80 104/57 L 05/13/23 10:08 72 94 05/13/23 10:03 84 95 05/13/23 09:58 87 98 05/13/23 09:53 101 H 121/78 97 05/13/23 09:54 94 H 125/78 05/13/23 09:52 112 H 91 05/13/23 09:51 89 108/64 05/13/23 09:48 91 H 100 05/13/23 09:47 86 107/62 05/13/23 09:45 91 H 106/63 05/13/23 09:43 89 99/57 L 99 05/13/23 09:41 86 99/58 L 05/13/23 09:40 86 108/63 05/13/23 09:38 100 H 100 05/13/23 09:37 97 H 124/75 Coding Level of Care Code None Diagnoses
[2023-05-13] MEDS: OXYTOCIN 30 UNITS/500 ML BAG IV PRN (21:53)
[2023-05-14] MEDS ORDERED: MoRPHine SULFATE PF 1 MG/ML 10 ML AMP/VIAL ONE (00:22)
--- NOTE | 2023-05-14 00:23 | Labor Progress Brief Note ---
Date of Service May 14, 2023 Subjective Reason For Note: Routine Evaluation contractions still no closer then 5 minutes apart FHT's reactive cervix exam - no change cervix still 5cm/80/-3 after over 5 hours options discussed with patient and her will proceed with primary section. Review of Systems All systems reviewed & are unremarkable except as noted in HPI & below Assessment & Plan (1) Failure to progress in labor: Plan: the procedure and it's risks were reviewed with the patient and her and all questions answered to her satisfaction and they are willing to proceed. Admission and Anticipated Discharge Date Admission Date: May 12, 2023 Physical Exam Constitutional: WD/WN, vitals as above Psychiatric: A+Ox3, euthymic affect Genitourinary: Manual OB Exam: + cervical dilation 5 cm, + cervical effacement 80% and + station high (-3) OB Exam Monitor Tracing: + external FHT monitor used, + external uterine monitor used, + category I and + normal FHT variability Results & Data Vital Signs (Past 12 Hours) Vital Signs Temp Pulse Resp BP Pulse Ox 05/13/23 23:15 18 05/13/23 22:15 18 05/13/23 21:15 18 05/13/23 21:15 18 05/13/23 20:15 18 05/13/23 19:15 18 05/14/23 00:13 96 H 98 05/14/23 00:10 92 H 163/89 H 05/14/23 00:08 94 H 99 05/14/23 00:03 103 H 99 05/13/23 23:58 85 97 05/13/23 23:53 90 98 05/13/23 23:54 81 144/78 H 05/13/23 23:48 91 H 98 05/13/23 23:43 87 97 05/13/23 23:39 83 139/79 05/13/23 23:38 97 H 98 05/13/23 23:33 81 95 05/13/23 23:28 81 94 05/13/23 23:24 89 91 05/13/23 23:23 77 92 05/13/23 23:18 78 92 05/13/23 23:19 86 90 05/13/23 23:13 84 91 05/13/23 23:09 93 H 130/71 05/13/23 23:08 78 93 05/13/23 23:03 80 93 05/13/23 22:58 76 93 05/13/23 22:54 76 133/71 05/13/23 22:53 77 93 05/13/23 22:48 75 93 05/13/23 22:43 77 94 05/13/23 22:39 89 131/77 05/13/23 22:38 83 96 05/13/23 22:33 78 95 05/13/23 22:28 84 97 05/13/23 22:24 89 149/84 H 05/13/23 22:23 78 97 05/13/23 22:18 80 97 05/13/23 22:13 81 97 05/13/23 22:09 83 133/78 05/13/23 22:08 84 98 05/13/23 22:03 87 98 05/13/23 21:58 95 H 100 05/13/23 21:54 96 H 135/87 05/13/23 21:53 95 H 100 05/13/23 21:48 92 H 100 05/13/23 21:43 98 H 98 05/13/23 21:38 90 97 05/13/23 21:39 90 137/85 05/13/23 21:33 87 97 05/13/23 21:28 91 H 98 05/13/23 21:26 86 137/84 05/13/23 21:23 92 H 100 05/13/23 21:18 85 96 05/13/23 21:13 80 95 05/13/23 21:11 81 137/80 05/13/23 21:08 86 97 05/13/23 21:03 87 97 05/13/23 20:58 89 96 05/13/23 20:54 91 H 154/79 H 05/13/23 20:53 95 H 98 05/13/23 20:48 96 H 98 05/13/23 20:43 89 98 05/13/23 20:39 88 141/74 H 05/13/23 20:38 92 H 100 05/13/23 20:33 92 H 99 05/13/23 20:28 91 H 99 05/13/23 20:25 83 143/75 H 05/13/23 20:23 89 99 05/13/23 20:18 96 H 100 05/13/23 19:27 97.7 F 05/13/23 20:13 85 100 05/13/23 20:08 92 H 100 05/13/23 20:03 89 99 05/13/23 19:58 85 99 05/13/23 19:53 91 H 100 05/13/23 19:54 96 H 140/73 05/13/23 19:48 88 97 05/13/23 19:43 87 99 05/13/23 19:39 99 H 129/71 05/13/23 19:38 88 98 05/13/23 19:33 90 100 05/13/23 19:28 104 H 100 05/13/23 19:23 81 96 05/13/23 19:24 86 139/76 05/13/23 19:18 82 96 05/13/23 19:13 80 97 05/13/23 19:09 79 137/69 05/13/23 19:08 82 98 05/13/23 19:03 85 99 05/13/23 19:02 82 151/74 H 05/13/23 18:58 92 H 100 05/13/23 18:55 104 H 185/97 H 05/13/23 18:53 90 100 05/13/23 18:48 86 100 05/13/23 18:01 16 05/13/23 18:01 16 05/13/23 18:43 84 96 05/13/23 18:39 92 H 125/75 05/13/23 18:38 95 H 99 05/13/23 18:33 82 97 05/13/23 18:28 85 94 05/13/23 18:24 85 121/63 05/13/23 18:23 85 95 05/13/23 18:18 83 99 05/13/23 18:13 91 H 98 05/13/23 18:09 81 121/64 05/13/23 18:08 87 98 05/13/23 18:03 85 96 05/13/23 17:58 84 16 96 05/13/23 17:54 83 123/66 05/13/23 17:53 89 98 05/13/23 17:48 93 H 97 05/13/23 17:43 92 H 97 05/13/23 17:39 89 124/61 05/13/23 17:38 94 H 98 05/13/23 17:33 106 H 99 05/13/23 17:28 87 97 05/13/23 17:24 88 121/64 05/13/23 17:23 87 96 05/13/23 17:18 91 H 98 05/13/23 17:13 98.1 F 85 16 94 05/13/23 17:08 82 94 05/13/23 17:09 89 114/61 05/13/23 17:03 88 95 05/13/23 16:58 88 97 05/13/23 16:54 85 124/69 05/13/23 16:53 86 96 05/13/23 16:48 94 H 100 05/13/23 16:43 86 98 05/13/23 16:40 86 138/80 05/13/23 16:38 86 94 05/13/23 16:33 83 97 05/13/23 16:28 84 97 05/13/23 16:24 86 136/76 05/13/23 16:23 90 98 05/13/23 16:18 89 100 05/13/23 16:13 87 98 05/13/23 16:08 94 H 16 100 05/13/23 16:09 84 135/80 05/13/23 16:03 95 H 99 05/13/23 15:58 93 H 97 05/13/23 15:55 92 H 133/81 05/13/23 15:53 88 97 05/13/23 15:48 103 H 99 05/13/23 15:43 99 H 100 05/13/23 15:40 100 H 148/79 H 05/13/23 15:38 98 H 98 05/13/23 15:33 95 H 99 05/13/23 15:28 88 98 05/13/23 15:24 85 137/81 05/13/23 15:23 87 98 05/13/23 15:18 88 97 05/13/23 15:13 85 99 05/13/23 15:09 80 139/83 05/13/23 15:08 85 97 05/13/23 15:03 97.7 F 88 18 98 05/13/23 14:58 91 H 97 05/13/23 14:54 80 143/88 H 05/13/23 14:53 81 97 05/13/23 14:48 92 H 98 05/13/23 14:43 94 H 100 05/13/23 14:39 88 138/82 05/13/23 14:38 89 97 05/13/23 14:33 81 93 05/13/23 14:28 80 92 05/13/23 14:24 91 H 05/13/23 14:23 85 91 05/13/23 14:24 92 H 123/71 91 05/13/23 14:00 16 05/13/23 14:00 16 05/13/23 14:18 90 93 05/13/23 14:17 77 91 05/13/23 14:13 80 92 05/13/23 14:09 84 121/69 05/13/23 14:08 77 92 05/13/23 14:03 81 97 05/13/23 13:58 86 97 05/13/23 13:53 79 95 05/13/23 13:54 83 117/64 05/13/23 13:48 87 98 05/13/23 13:43 86 96 05/13/23 13:15 98.4 F 05/13/23 13:39 76 112/59 L 05/13/23 13:38 88 92 05/13/23 13:33 85 99 05/13/23 13:28 84 98 05/13/23 13:23 89 98 05/13/23 13:24 85 118/64 05/13/23 13:18 80 96 05/13/23 13:00 16 05/13/23 13:00 16 05/13/23 13:13 81 98 05/13/23 13:09 80 125/62 05/13/23 13:08 82 97 05/13/23 13:03 82 97 05/13/23 12:58 89 100 05/13/23 12:55 83 132/79 05/13/23 12:53 94 H 99 05/13/23 12:48 84 99 05/13/23 12:43 85 99 05/13/23 12:39 80 124/69 05/13/23 12:38 83 100 05/13/23 12:33 86 99 05/13/23 12:28 85 100 05/13/23 12:25 81 125/70 05/13/23 12:23 83 99 05/13/23 12:18 83 100
[2023-05-14] MEDS ORDERED: OXYTOCIN 10 UNITS/ML VIAL ONE (00:26)
[2023-05-14] MEDS ORDERED: METOCLOPRAMIDE HCL INJ 5 MG/ML 2 ML VIAL ONE (00:26)
[2023-05-14] MEDS ORDERED: CITRIC ACID/SODIUM CITRATE 15 ML UDC PO SCH (00:45)
[2023-05-14] MEDS ORDERED: PHENYLEPHRINE 100MCG/ML 5ML SYR ONE (01:16)
[2023-05-14] MEDS ORDERED: ePHEDrine sulfate 50 MG/ML SYR ONE (01:16)
[2023-05-14] MEDS ORDERED: ONDANSETRON INJ 2 MG/ML 2 ML VIAL ONE (01:17)
[2023-05-14] MEDS ORDERED: KETOROLAC 30 MG/ML VIAL IV PRN ×2 (01:19→19:20)
[2023-05-14] MEDS ORDERED: LACTATED RINGER'S 500 ML IV PRN (01:19)
[2023-05-14] MEDS ORDERED: NALOXONE HCL 0.08 MG in SYRINGE 1.8 ML IV PRN (01:19)
[2023-05-14] MEDS ORDERED: NALBUPHINE HCL INJ 10 MG/ML AMP IV PRN (01:19)
[2023-05-14] MEDS ORDERED: NALOXONE HCL 0.4 MG/1 ML VIAL/CARP IV PRN (01:19)
[2023-05-14] MEDS ORDERED: ONDANSETRON INJ 2 MG/ML 2 ML VIAL IV PRN ×2 (01:19→19:20)
[2023-05-14] MEDS ORDERED: NALOXONE HCL 1 MG in SODIUM CHLORIDE 0.9% 1000ML 1,000 ML IV PRN (01:19)
[2023-05-14] MEDS ORDERED: MoRPHine SULFATE 2 MG/ML CARP IV PRN (01:19)
[2023-05-14] MEDS ORDERED: diphenhydrAMINE 50 MG/ML VIAL IV PRN ×2 (01:19→19:20)
[2023-05-14] MEDS ORDERED: ePHEDrine sulfate 50 MG/ML AMP IV PRN (01:19)
[2023-05-14] MEDS ORDERED: PROMETHAZINE HCL 6.25 MG in SODIUM CHLORIDE 0.9% 50 ML IV PRN (01:19)
[2023-05-14] MEDS ORDERED: MoRPHine SULFATE PF 1 MG/ML 10 ML AMP/VIAL EPI ONE (01:19)
[2023-05-14] MEDS ORDERED: LIDOCAINE 2%/EPINEPHRINE 1:200,000 20 ML PF ONE (01:27)
[2023-05-14] MEDS ORDERED: SODIUM CHLORIDE 0.9% 1000ML 1,000 ML IV SCH (01:30)
[2023-05-14] MEDS ORDERED: NO NARCOTICS OR SEDATIVES SCH (01:30)
[2023-05-14] MEDS ORDERED: DC INTRASPINAL MORPHINE SCH (01:30)
[2023-05-14] MEDS ORDERED: BENZOCAINE 20% SPRY 85 APPLN/85 GM CAN EXT PRN (02:16)
[2023-05-14] MEDS ORDERED: HYDROCORTISONE ACETATE 25 MG SUPP PR PRN (02:16)
[2023-05-14] MEDS ORDERED: SENNA 8.6 MG TAB PO PRN (02:16)
[2023-05-14] MEDS ORDERED: DIPHTHERIA/TETANUS/PERTUSSIS Vaccine (Tdap, Age 7+yrs) 0.5mL SYR/VL IM ONE (02:16)
[2023-05-14] MEDS ORDERED: MAGNESIUM HYDROXIDE SUSP 30 ML UDC PO PRN (02:16)
--- NOTE | 2023-05-14 02:21 | Post Operative Brief Note ---
PG Immediate Post Op with CF Date of Surgery May 14, 2023 Pre & Post Diagnosis Operation Date: 05/14/23 00:15 Pre-Op Diagnosis: 1. Arrest of dilitation 2. Arrest of decent 3. Failed induction 4. Preeclampsia with severe features Post-Op Diagnosis: Same as preop I identified the patient and participated in the time-out.: Yes Procedure Operation Date: 05/14/23 00:15 Actual Procedures p Section in LD(Not Applicable) - Marjorie Galarza MD, FACOG Surgeon Marjorie Galarza MD, FACOG Control Systems Designer Qiana Daniel RN Estimated Blood Loss 400 Findings Consistent with Post-Op Diagnosis gravid uterus - bilateral ovaries and tubes are normal 1cm sessile fibroid posterior fundus Specimens Specimen Description: 1. Placenta (hold) 2. Cord Blood Drains Lund Catheter (Draining clear yellow urine, anesthesia to montior) Anesthesia Type L&D Only Epidural Exists Complications none Disposition Accompanied Patient To Recovery: Yes
[2023-05-14] MEDS ORDERED: SODIUM CHLORIDE 0.9% 250 ML IV PRN (02:30)
[2023-05-14] MEDS ORDERED: LACTATED RINGER'S 1,000 ML IV SCH (02:30)
--- NOTE | 2023-05-14 02:31 | Operative Report ---
PG Post Operative Report Pre & Post Diagnosis Operation Date: 05/14/23 00:15 Pre-Op Diagnosis: 1. Arrest of dilitation 2. Arrest of decent 3. Failed induction 4. Preeclampsia with severe features Post-Op Diagnosis: Same as preop I identified the patient and participated in the time-out.: Yes Procedure Operation Date: 05/14/23 00:15 Actual Procedures p Section in LD(Not Applicable) - Marjorie Galarza MD, FACOG Surgeon Marjorie Galarza MD, FACOG [employer] Qiana Daniel RN Estimated Blood Loss 400 Findings Consistent with Post-Op Diagnosis Specimens Placenta to hold. Drains Lund catheter to straight drainage. Clear dilute urine at the end of the case. Anesthesia Type L&D Only Epidural Exists Complications none Disposition Accompanied Patient To Recovery: Yes Indications Patient is a 37-year-old G1, P0 female who presents at 35-5/7 weeks with preeclampsia and severe features. She underwent a induction with Pitocin and a cervical balloon initially. She never was able to establish a adequate contraction pattern. She progressed to 5 cm dilated but despite Pitocin at 30 milliunits units, the cervical exam did not change management specialist 5 hours and the vertex remained at -3 station. Description of Procedure After the patient received effective epidural anesthesia she was prepped and draped in usual sterile fashion. A low transverse skin incision was made with scalpel and carried to the fascia with the same scalpel. The fascial incision was then extended with Gonzalez scissors, the edges were then grasped with Jenn clamps and the underlying rectus muscles bluntly sharply dissected off of the overlying fascia. The rectus muscles were then bluntly divided in the midline and the underlying peritoneum entered bluntly. The bladder was then taken down off the anterior surface of the uterus and placed behind the bladder blade. The lower uterine segment was entered with a scalpel and extended transversely. The infant was delivered from the vertex presentation with moderate fundal pressure and assistance of a Kiwi vacuum. After the head was delivered the rest of the infant delivered easily. The cord was clamped and cut and the infant handed off to Dr. Adrian who was in attendance as truck striker. Placenta was then manually removed after cord blood was obtained. The uterus was then exteriorized to cover the clean lap sponge. Uterine cavity was explored and found to be free of any retained placenta or membranes. Dilute Pitocin was used for hemostasis al oswaldo with fundal massage. The uterus was then closed in 2 layers in a running locking imbricating fashion. Hemostasis was excellent on the uterine incision. The posterior cul-de-sac was evaluated and was found to be free of any extra clot or fluid. The uterus was then placed back inside the abdominal cavity, the gutters were explored and found to be free of any clot or fluid. The uterine incision was examined once more continue to have excellent hemostasis. The rectus muscles were then brought together on the midline with individual stitches of 0 Monocryl. The fascia was closed in a running fashion with 0 Vicryl. After irrigating the adipose layer with normal saline, Kylie's fascia was reapproximated with a running stitch of 3-0 plain catgut. Skin edges were reapproximated using 4-0 Vicryl in a subcuticular fashion. Mother and were doing well after delivery. I attest to the content of the Intraoperative Record and any orders documented therein. Any exceptions are noted below. OB Procedure Charges 95293
[2023-05-14] MEDS: MAGNESIUM SULFATE / WTR 40 GM/1,000 ML BAG IV SCH ×2 (03:29→22:33)
[2023-05-14] MEDS: OXYTOCIN 20 UNITS in LACTATED RINGER'S 1,000 ML IV SCH ×2 (03:32→17:59)
--- NOTE | 2023-05-14 07:39 | Obstetrical Progress Note ---
Date of Service May 14, 2023 Assessment & Plan (1) care following delivery: stable BP's - continue to monitor urine output is excellent 800cc since 0200 Mg SO4 started at 1800 on 05/12 will continue until at least noon today continue rest of routine orderes will check PIH labs this AM Subjective Voiding: barnhart catheter in place Passing Gas:: No Diet Tolerance:: NPO Lochia:: Moderate Feeding Type:: breast feeding feels lightheaded this am when sitting up or moving her head from side to side. similar symptoms as when she had a concussion in the past. pain is well controlled. mild headache but no different then what she has experienced since starting Mg SO4 Review of Systems All systems reviewed & are unremarkable except as noted in HPI & below Physical Exam Constitutional WD/WN, vitals as above Gastrointestinal (Abdomen) incision dry and intact Psychiatric A+Ox3, euthymic affect Genitourinary OB Exam Abdomen: + fundal height Fundus: + firm and + relation to umbilicus (at U) Results & Data Vital Signs (Past 12 Hours) Vital Signs Temp Pulse Resp BP Pulse Ox O2 Del Method 05/14/23 06:00 18 05/14/23 05:00 18 05/14/23 05:00 98.2 F 05/14/23 04:00 18 05/14/23 04:00 18 05/14/23 03:30 18 05/14/23 03:00 18 05/14/23 03:00 18 Room Air 05/14/23 02:50 18 05/14/23 02:44 18 Room Air 05/14/23 02:30 18 05/14/23 02:20 18 05/14/23 02:10 18 05/14/23 02:00 97.9 F 16 05/14/23 00:15 18 05/13/23 23:15 18 05/13/23 22:15 18 05/13/23 21:15 18 05/13/23 21:15 18 05/13/23 20:15 18 05/14/23 07:31 72 92 05/14/23 07:27 71 90 05/14/23 07:26 75 92 05/14/23 07:21 88 95 05/14/23 07:16 89 94 05/14/23 07:11 80 95 05/14/23 07:06 81 97 05/14/23 07:01 83 96 05/14/23 06:59 82 134/82 05/14/23 06:56 84 97 05/14/23 06:51 82 93 05/14/23 06:46 79 92 05/14/23 06:41 83 95 05/14/23 06:36 82 95 05/14/23 06:31 85 95 05/14/23 06:26 87 95 05/14/23 06:21 78 93 05/14/23 06:16 89 97 05/14/23 06:11 87 96 05/14/23 06:06 94 H 93 05/14/23 06:01 76 90 05/14/23 06:00 76 126/72 05/14/23 05:56 94 05/14/23 05:56 93 H 05/14/23 05:56 86 90 05/14/23 05:51 73 88 L 05/14/23 05:46 76 87 L 05/14/23 05:41 76 88 L 05/14/23 05:36 75 87 L 05/14/23 05:31 75 90 05/14/23 05:26 74 86 L 05/14/23 05:23 84 89 L 05/14/23 05:21 76 85 L 05/14/23 05:16 78 87 L 05/14/23 05:11 76 87 L 05/14/23 05:10 77 89 L 05/14/23 05:06 94 H 94 05/14/23 05:04 95 H 94 05/14/23 05:01 80 88 L 05/14/23 05:00 82 121/71 05/14/23 04:56 91 H 93 05/14/23 04:51 85 89 L 05/14/23 04:46 81 89 L 05/14/23 04:41 90 94 05/14/23 04:38 83 92 05/14/23 04:36 91 H 90 05/14/23 04:31 87 94 05/14/23 04:29 100 H 94 05/14/23 04:26 97 H 93 05/14/23 04:21 87 91 05/14/23 04:18 88 93 05/14/23 04:16 82 93 05/14/23 04:11 81 93 05/14/23 04:06 79 93 05/14/23 04:01 77 91 05/14/23 03:57 84 129/70 94 05/14/23 03:56 89 95 05/14/23 03:52 83 124/64 05/14/23 03:51 91 H 94 05/14/23 03:46 79 93 05/14/23 03:41 96 H 96 05/14/23 03:42 78 131/71 05/14/23 03:40 91 H 94 05/14/23 03:36 85 96 05/14/23 03:35 88 94 05/14/23 03:32 85 123/65 05/14/23 03:31 89 95 05/14/23 03:27 81 93 05/14/23 03:26 85 95 05/14/23 03:22 76 123/68 92 05/14/23 03:21 80 96 05/14/23 03:16 83 96 05/14/23 03:12 81 122/64 05/14/23 03:11 86 97 05/14/23 03:06 90 97 05/14/23 03:02 88 127/61 05/14/23 03:01 86 96 05/14/23 02:56 92 H 96 05/14/23 02:52 84 109/58 L 05/14/23 02:51 86 96 05/14/23 02:49 87 92 05/14/23 02:46 82 97 05/14/23 02:42 80 106/57 L 05/14/23 02:41 80 93 05/14/23 02:40 81 93 05/14/23 02:36 86 95 05/14/23 02:32 103/58 L 05/14/23 02:31 82 93 05/14/23 02:29 83 94 05/14/23 02:26 88 96 05/14/23 02:22 77 96/54 L 05/14/23 02:21 79 93 05/14/23 02:19 84 94 05/14/23 02:16 93 H 97 05/14/23 02:12 78 95/52 L 05/14/23 02:11 79 91 05/14/23 02:06 79 92/53 L 92 05/14/23 02:01 93 05/14/23 02:01 84 05/14/23 02:02 84 90/52 L 05/14/23 02:01 85 92 05/14/23 00:41 112 H 176/101 H 05/14/23 00:38 88 97 05/14/23 00:33 89 97 05/14/23 00:28 100 H 98 05/14/23 00:25 93 H 155/87 H 05/14/23 00:23 97 H 98 05/14/23 00:18 91 H 99 05/14/23 00:13 96 H 98 05/14/23 00:10 92 H 163/89 H 05/14/23 00:08 94 H 99 05/14/23 00:03 103 H 99 05/13/23 23:58 85 97 05/13/23 23:53 90 98 05/13/23 23:54 81 144/78 H 05/13/23 23:48 91 H 98 05/13/23 23:43 87 97 05/13/23 23:39 83 139/79 05/13/23 23:38 97 H 98 05/13/23 23:33 81 95 05/13/23 23:28 81 94 05/13/23 23:24 89 91 05/13/23 23:23 77 92 05/13/23 23:18 78 92 05/13/23 23:19 86 90 05/13/23 23:13 84 91 05/13/23 23:09 93 H 130/71 05/13/23 23:08 78 93 05/13/23 23:03 80 93 05/13/23 22:58 76 93 05/13/23 22:54 76 133/71 05/13/23 22:53 77 93 05/13/23 22:48 75 93 05/13/23 22:43 77 94 05/13/23 22:39 89 131/77 05/13/23 22:38 83 96 05/13/23 22:33 78 95 05/13/23 22:28 84 97 05/13/23 22:24 89 149/84 H 05/13/23 22:23 78 97 05/13/23 22:18 80 97 05/13/23 22:13 81 97 05/13/23 22:09 83 133/78 05/13/23 22:08 84 98 05/13/23 22:03 87 98 05/13/23 21:58 95 H 100 05/13/23 21:54 96 H 135/87 05/13/23 21:53 95 H 100 05/13/23 21:48 92 H 100 05/13/23 21:43 98 H 98 05/13/23 21:38 90 97 05/13/23 21:39 90 137/85 05/13/23 21:33 87 97 05/13/23 21:28 91 H 98 05/13/23 21:26 86 137/84 05/13/23 21:23 92 H 100 05/13/23 21:18 85 96 05/13/23 21:13 80 95 05/13/23 21:11 81 137/80 05/13/23 21:08 86 97 05/13/23 21:03 87 97 05/13/23 20:58 89 96 05/13/23 20:54 91 H 154/79 H 05/13/23 20:53 95 H 98 05/13/23 20:48 96 H 98 05/13/23 20:43 89 98 05/13/23 20:39 88 141/74 H 05/13/23 20:38 92 H 100 05/13/23 20:33 92 H 99 05/13/23 20:28 91 H 99 05/13/23 20:25 83 143/75 H 05/13/23 20:23 89 99 05/13/23 20:18 96 H 100 05/13/23 20:13 85 100 05/13/23 20:08 92 H 100 05/13/23 20:03 89 99 05/13/23 19:58 85 99 05/13/23 19:53 91 H 100 05/13/23 19:54 96 H 140/73 05/13/23 19:48 88 97 05/13/23 19:43 87 99 05/13/23 19:39 99 H 129/71 05/13/23 19:38 88 98
[2023-05-14] MEDS: PRENATAL VITAMIN 1 TAB PO SCH (07:41)
[2023-05-14] MEDS: DOCUSATE SODIUM 100 MG CAP PO SCH (07:41)
[2023-05-14] MEDS: FERROUS SULFATE 325 MG TAB PO SCH (07:41)
[2023-05-14] MEDS: SIMETHICONE 80 MG CHEW PO SCH ×3 (07:41→17:42)
[2023-05-14 08:11] LABS: Basophils # (auto) 0.01 K/uL (0-0.2); Basophils % (auto) 0.1 %; Hematocrit (blood only) 31.5 % (37.0-47.0); Hemoglobin 11.2 g/dl (12.0-16.0); Immature Granulocytes # (auto) 0.25 K/uL (0.01-0.20); Immature Granulocytes % (auto) 1.8 %; Lymphocytes # (auto) 1.04 K/uL (1.2-3.4); Lymphocytes % (auto) 7.3 %; Mean Corpuscular Hemoglobin 30.8 pg (25.0-34.0); Mean Corpuscular Hgb Conc 35.6 g/dL (32.0-36.0); Mean Corpuscular Volume 86.5 fL (80.0-100.0); Mean Platelet Volume 11.3 fL (9.4-12.4); Monocytes # (auto) 0.89 K/uL (0.11-0.59); Monocytes % (auto) 6.3 %; Neutrophils # (auto) 11.96 K/uL (1.40-6.50); Neutrophils % (auto) 84.5 %; Platelet Count 230 K/uL (130-400); RDW Coefficient of Variation 13.2 % (11.5-14.5); RDW Standard Deviation 41.1 fL (36.4-46.3); Red Blood Count 3.64 M/uL (4.20-5.40); White Blood Count 14.15 K/ul (4.8-10.8)
[2023-05-14 08:27] LABS: Creatinine Clr Calc Pharmacy 162.2 ml/min; Est GFR (African American) 138.4 ml/min; Est GFR (Non-African American) 119.4 ml/min
[2023-05-14] MEDS: CITALOPRAM 20 MG TAB PO SCH (08:36)
[2023-05-14] MEDS ORDERED: ACETAMINOPHEN 1,000 MG/100 ML VIAL IV PRN (09:29)
[2023-05-14] MEDS ORDERED: ACETAMINOPHEN 500 MG TAB PO PRN (09:29)
--- NOTE | 2023-05-14 13:27 | Communication Note ---
Date of Service: May 14, 2023 stopped in to see pt but she is sleeping. had benadryl due to skin rash ? from duramorph. urine output is 1000cc/4hr. bps are good. monitor, plan 24hr of mag seizure prophylaxis given her dx of preeclampsia, severe features.
[2023-05-14] MEDS ORDERED: MEPERIDINE HCL 50 MG/ML CARP IV PRN (19:20)
[2023-05-14] MEDS ORDERED: diphenhydrAMINE Capsule 25 MG CAP PO PRN (19:20)
[2023-05-14] MEDS ORDERED: PROMETHAZINE HCL 25 MG in SODIUM CHLORIDE 0.9% 50 ML IV PRN (19:20)
[2023-05-14] MEDS ORDERED: oxyCODONE/ACETAMINOPHEN 5mg/325mg TAB PO PRN (19:20)
[2023-05-15] MEDS: ACETAMINOPHEN 325 MG TAB PO PRN ×3 (03:17→21:12)
[2023-05-15 06:29] LABS: Basophils # (auto) 0.01 K/uL (0-0.2); Basophils % (auto) 0.1 %; Eosinophils # (auto) 0.07 K/uL (0-0.50); Eosinophils % (auto) 0.7 %; Hematocrit (blood only) 30.5 % (37.0-47.0); Hemoglobin 10.6 g/dl (12.0-16.0); Immature Granulocytes # (auto) 0.11 K/uL (0.01-0.20); Immature Granulocytes % (auto) 1.2 %; Lymphocytes # (auto) 1.35 K/uL (1.2-3.4); Lymphocytes % (auto) 14.3 %; Mean Corpuscular Hemoglobin 30.9 pg (25.0-34.0); Mean Corpuscular Hgb Conc 34.8 g/dL (32.0-36.0); Mean Corpuscular Volume 88.9 fL (80.0-100.0); Monocytes # (auto) 0.85 K/uL (0.11-0.59); Neutrophils # (auto) 7.07 K/uL (1.40-6.50); Neutrophils % (auto) 74.7 %; Platelet Count 226 K/uL (130-400); RDW Coefficient of Variation 13.3 % (11.5-14.5); RDW Standard Deviation 43.3 fL (36.4-46.3); Red Blood Count 3.43 M/uL (4.20-5.40); White Blood Count 9.46 K/ul (4.8-10.8)
--- NOTE | 2023-05-15 07:24 | Obstetrical Progress Note ---
Date of Service May 15, 2023 Assessment & Plan (1) care following delivery: Plan stable routine care. adv diet, ambulate, watch bps. rh pos, ri, breast feeding. Day #:: 1 Physical Exam Constitutional WD/WN, vitals as above Respiratory normal respiratory effort, lungs clear to auscultation Cardiovascular Rate/Rhythm: regular rate and regular rhythm Gastrointestinal (Abdomen) Inspection/Auscultation: abdomen normal to inspection and + abdominal surgical incision (c/d/i) Percussion/Palpation: abdomen soft Fundus firm 2cm down Musculoskeletal nt calves no edema Neurologic grossly normal Psychiatric A+Ox3, euthymic affect Results & Data Vital Signs (Past 12 Hours) Vital Signs Temp Pulse Pulse Resp BP BP Pulse Ox 05/15/23 03:10 98.1 F 74 20 118/82 96 05/15/23 03:10 98.1 F 74 20 118/82 96 05/15/23 01:15 05/15/23 01:15 98.1 F 80 20 144/93 H 93 05/15/23 00:55 16 05/14/23 23:30 98.2 F 16 94 05/14/23 22:30 17 05/14/23 20:32 16 05/14/23 19:33 17 100 05/14/23 19:33 97.7 F 17 97 05/15/23 01:00 78 133/74 05/15/23 00:59 74 90 05/15/23 00:57 76 91 05/15/23 00:54 69 90 05/15/23 00:52 73 90 05/15/23 00:49 71 90 05/15/23 00:47 70 91 05/15/23 00:42 71 90 05/15/23 00:37 74 90 05/15/23 00:36 73 89 L 05/15/23 00:32 72 91 05/15/23 00:31 74 88 L 05/15/23 00:27 76 90 05/15/23 00:25 73 89 L 05/15/23 00:22 78 89 L 05/15/23 00:19 76 89 L 05/15/23 00:17 73 89 L 05/15/23 00:14 76 89 L 05/15/23 00:12 80 90 05/15/23 00:08 75 90 05/15/23 00:07 82 92 05/15/23 00:02 79 91 05/15/23 00:00 81 127/74 05/14/23 23:57 82 89 L 05/14/23 23:56 78 89 L 05/14/23 23:52 81 92 05/14/23 23:50 81 90 05/14/23 23:47 82 93 05/14/23 23:45 80 90 05/14/23 23:42 89 95 05/14/23 23:43 81 132/79 05/14/23 23:01 85 92 05/14/23 23:00 74 113/67 90 05/14/23 22:56 73 91 05/14/23 22:53 76 90 05/14/23 22:51 75 90 05/14/23 22:48 75 90 05/14/23 22:46 75 92 05/14/23 22:41 77 91 05/14/23 22:36 81 95 05/14/23 22:31 85 98 05/14/23 22:26 84 95 05/14/23 22:21 89 97 05/14/23 22:16 84 98 05/14/23 22:11 76 93 05/14/23 22:06 73 93 05/14/23 22:01 81 98 05/14/23 22:00 81 121/58 L 05/14/23 21:56 70 93 05/14/23 21:51 75 95 05/14/23 21:46 94 H 96 05/14/23 21:41 93 H 97 05/14/23 21:36 78 96 05/14/23 21:31 80 96 05/14/23 21:26 84 97 05/14/23 21:21 90 98 05/14/23 21:16 80 89 L 05/14/23 21:12 75 90 05/14/23 21:11 73 89 L 05/14/23 21:06 92 05/14/23 21:06 79 05/14/23 21:06 78 90 05/14/23 21:01 88 96 05/14/23 21:00 75 112/67 05/14/23 20:58 74 90 05/14/23 20:56 77 90 05/14/23 20:52 83 90 05/14/23 20:51 78 93 05/14/23 20:46 73 90 05/14/23 20:45 73 90 05/14/23 20:41 72 91 05/14/23 20:39 75 90 05/14/23 20:36 75 92 05/14/23 20:31 71 93 05/14/23 20:26 73 95 05/14/23 20:21 80 97 05/14/23 20:17 85 88 L 05/14/23 20:16 78 93 05/14/23 20:11 79 99 05/14/23 20:06 75 94 05/14/23 20:01 79 100 05/14/23 20:00 71 125/75 05/14/23 19:56 85 100 05/14/23 19:51 76 98 05/14/23 19:46 74 100 05/14/23 19:41 78 100 05/14/23 19:36 79 98 05/14/23 19:31 81 99 05/14/23 19:26 80 98 O2 Del Method 05/15/23 03:10 05/15/23 03:10 Room Air 05/15/23 01:15 Room Air 05/15/23 01:15 Room Air 05/15/23 00:55 05/14/23 23:30 Room Air 05/14/23 22:30 05/14/23 20:32 05/14/23 19:33 05/14/23 19:33 Room Air 05/15/23 01:00 05/15/23 00:59 05/15/23 00:57 05/15/23 00:54 05/15/23 00:52 05/15/23 00:49 05/15/23 00:47 05/15/23 00:42 05/15/23 00:37 05/15/23 00:36 05/15/23 00:32 05/15/23 00:31 05/15/23 00:27 05/15/23 00:25 05/15/23 00:22 05/15/23 00:19 05/15/23 00:17 05/15/23 00:14 05/15/23 00:12 05/15/23 00:08 05/15/23 00:07 05/15/23 00:02 05/15/23 00:00 05/14/23 23:57 05/14/23 23:56 05/14/23 23:52 05/14/23 23:50 05/14/23 23:47 05/14/23 23:45 05/14/23 23:42 05/14/23 23:43 05/14/23 23:01 05/14/23 23:00 05/14/23 22:56 05/14/23 22:53 05/14/23 22:51 05/14/23 22:48 05/14/23 22:46 05/14/23 22:41 05/14/23 22:36 05/14/23 22:31 05/14/23 22:26 05/14/23 22:21 05/14/23 22:16 05/14/23 22:11 05/14/23 22:06 05/14/23 22:01 05/14/23 22:00 05/14/23 21:56 05/14/23 21:51 05/14/23 21:46 05/14/23 21:41 05/14/23 21:36 05/14/23 21:31 05/14/23 21:26 05/14/23 21:21 05/14/23 21:16 05/14/23 21:12 05/14/23 21:11 05/14/23 21:06 05/14/23 21:06 05/14/23 21:06 05/14/23 21:01 05/14/23 21:00 05/14/23 20:58 05/14/23 20:56 05/14/23 20:52 05/14/23 20:51 05/14/23 20:46 05/14/23 20:45 05/14/23 20:41 05/14/23 20:39 05/14/23 20:36 05/14/23 20:31 05/14/23 20:26 05/14/23 20:21 05/14/23 20:17 05/14/23 20:16 05/14/23 20:11 05/14/23 20:06 05/14/23 20:01 05/14/23 20:00 05/14/23 19:56 05/14/23 19:51 05/14/23 19:46 05/14/23 19:41 05/14/23 19:36 05/14/23 19:31 05/14/23 19:26
[2023-05-15] MEDS: IBUPROFEN 600 MG TAB PO PRN (08:43)
[2023-05-15] MEDS: FERROUS SULFATE 325 MG TAB PO SCH (08:44)
[2023-05-15] MEDS: SIMETHICONE 80 MG CHEW PO SCH ×4 (08:44→21:12)
[2023-05-15] MEDS: PRENATAL VITAMIN 1 TAB PO SCH (08:44)
[2023-05-15] MEDS: DOCUSATE SODIUM 100 MG CAP PO SCH ×2 (08:44→21:12)
[2023-05-15] MEDS: CITALOPRAM 20 MG TAB PO SCH (09:02)
[2023-05-15] MEDS ORDERED: bisacodyL 5 MG TABEC PO SCH (20:00)
[2023-05-16] MEDS: IBUPROFEN 600 MG TAB PO PRN ×3 (00:13→20:15)
[2023-05-16] MEDS ORDERED: bisacodyL 10 MG SUPP PR PRN (02:16)
[2023-05-16] MEDS: ACETAMINOPHEN 325 MG TAB PO PRN ×2 (02:51→16:35)
[2023-05-16 06:42] LABS: Hematocrit (blood only) 30.8 % (37.0-47.0); Hemoglobin 10.4 g/dl (12.0-16.0)
[2023-05-16] MEDS ORDERED: NIFEdipine EXTENDED REL 30 MG TABCR PO STA ×2 (07:10→17:03)
[2023-05-16] MEDS ORDERED: NIFEdipine 10 MG CAP PO STA ×2 (07:10→20:30)
--- NOTE | 2023-05-16 07:10 | Obstetrical Progress Note ---
Date of Service May 16, 2023 She is postoperative day #2 and she is feeling reasonably well she is working on breast-feeding she has no significant headache but blood pressures were increased last night Assessment & Plan (1) care following delivery: Postoperative day #2 the patient is doing well generally however his systolic pressures seem to be elevated with the most recent blood pressure 156/93 I will initiate therapy she will stay today will start nifedipine with an initial quick acting dose and then plan for a once daily extended release nifedipine Subjective Constitutional: + as per Subjective / HPI Physical Exam Constitutional WD/WN, vitals as above well developed and well nourished Respiratory normal respiratory effort, lungs clear to auscultation normal respiratory effort Cardiovascular RRR, no murmur, no edema Gastrointestinal (Abdomen) normal bowel sounds, soft, nontender, no hepatosplenomegaly Results & Data Vital Signs (Past 12 Hours) Vital Signs Temp Pulse Resp BP Pulse Ox O2 Del Method 05/16/23 05:38 156/93 H 05/16/23 02:54 156/95 H 05/16/23 01:00 91 H 20 156/99 H 05/15/23 19:45 97.7 F 77 20 151/93 H 96 Room Air
[2023-05-16] MEDS: FERROUS SULFATE 325 MG TAB PO SCH (08:04)
[2023-05-16] MEDS: PRENATAL VITAMIN 1 TAB PO SCH (08:04)
[2023-05-16] MEDS: SIMETHICONE 80 MG CHEW PO SCH ×4 (08:04→20:16)
[2023-05-16] MEDS: DOCUSATE SODIUM 100 MG CAP PO SCH ×2 (08:05→20:16)
[2023-05-16] MEDS: CITALOPRAM 20 MG TAB PO SCH (08:05)
[2023-05-16 20:55] LABS: Hematocrit (blood only) 34.8 % (37.0-47.0); Hemoglobin 12.1 g/dl (12.0-16.0); Mean Corpuscular Hemoglobin 31.1 pg (25.0-34.0); Mean Corpuscular Hgb Conc 34.8 g/dL (32.0-36.0); Mean Corpuscular Volume 89.5 fL (80.0-100.0); Mean Platelet Volume 10.3 fL (9.4-12.4); Platelet Count 321 K/uL (130-400); RDW Coefficient of Variation 13.3 % (11.5-14.5); RDW Standard Deviation 43.3 fL (36.4-46.3); Red Blood Count 3.89 M/uL (4.20-5.40); White Blood Count 10.26 K/ul (4.8-10.8)
[2023-05-16 21:06] LABS: Creatinine Clr Calc Pharmacy 113.4 ml/min; Est GFR (African American) 105.9 ml/min; Est GFR (Non-African American) 91.4 ml/min
--- NOTE | 2023-05-17 07:32 | Obstetrical Progress Note ---
Date of Service <Darell Chin MD - Last Filed: 05/17/23 08:36> May 17, 2023 Assessment & Plan <Darell Chin MD - Last Filed: 05/17/23 08:36> (1) care following delivery: (2) Pre-eclampsia in third trimester: Plan Vital Signs reviewed and WNL. (Tmax at 37.1), BPs have continued to be elevated up to SBP of 160 Hemoglobin Reviewed. 12.1 (05/16/23) 10.4 (05/16/23). Blood Type: A+, GBS-, Rubella Immune. Pt is doing well clinically. Encourage Ambulation, Monitor and Control pain with Motrin PRN, Resume regular diet, Monitor Lochia Encourage Breast Feeding. Pt counselled on discharge instructions. Discharge instructions were placed but is contingent upon patient's continuing BPs on nifedipine. <Gabe Plata MD - Last Filed: 05/19/23 08:28> (1) care following delivery: (2) Pre-eclampsia in third trimester: Subjective <Darell Chin MD - Last Filed: 05/17/23 08:36> Ambulation: ambulating normally Voiding: no voiding problems and no incontinence Passing Gas:: Yes Diet Tolerance:: regular diet Lochia:: Small Feeding Type:: breast feeding Current Pain Level(1-10): 1 37 yo F, s/p day C/S with very little residual pain around the incision area Review of Systems All systems reviewed & are unremarkable except as noted in HPI & below Eyes: + seeing flashes (patient felt like she was seeing 'floaters' yesterday); no diplopia or no worsening vision Respiratory: no cough or no dyspnea Cardiovascular: no chest pain or no palpitations Gastrointestinal: no abdominal pain (no RUQ or other pain) Musculoskeletal: no myalgia or no body aches Integumentary: no rash or no pruritus Neurologic: + numbness (background numbness of r. hand) and + headache(s) (minor headache at times) Psychiatric: no difficulty concentrating or no confusion Physical Exam <Darell Chin MD - Last Filed: 05/17/23 08:36> Respiratory normal respiratory effort, lungs clear to auscultation Cardiovascular RRR, no murmur, no edema Gastrointestinal (Abdomen) some erythema above incision site centrally Musculoskeletal Extremities: extremities normal to inspection (no calf pain or tenderness) Results & Data <Darell Chin MD - Last Filed: 05/17/23 08:36> Vital Signs (Past 12 Hours) Vital Signs Temp Pulse Resp BP Pulse Ox O2 Del Method 05/17/23 07:15 36.8 C 105 H 149/98 H 05/17/23 03:15 134/99 05/17/23 03:09 36.8 C 83 18 98 Room Air 05/16/23 23:20 36.8 C 82 20 134/85 98 Room Air 05/16/23 22:05 106 H 143/92 H 05/16/23 20:10 Room Air 05/16/23 20:10 36.6 C 102 H 20 158/107 H 97 Room Air <Gabe Plata MD - Last Filed: 05/19/23 08:28> Co-Signing Physician Notes Patient seen with resident and agree with the above findings and plan. Increase blood pressure medications to 90 mg of Procardia daily. Mostly mild range blood pressure is noted. Denies any preeclampsia symptoms. Reports that she is feeling well. Will monitor blood pressures throughout the morning and early afternoon and if remain on the lower end of mild range we will discharge her home today with follow-up blood pressure check in clinic
[2023-05-17] MEDS: PRENATAL VITAMIN 1 TAB PO SCH (08:18)
[2023-05-17] MEDS: SIMETHICONE 80 MG CHEW PO SCH ×2 (08:19→12:58)
[2023-05-17] MEDS: DOCUSATE SODIUM 100 MG CAP PO SCH (08:19)
[2023-05-17] MEDS: FERROUS SULFATE 325 MG TAB PO SCH (08:19)
[2023-05-17] MEDS: CITALOPRAM 20 MG TAB PO SCH (08:20)
[2023-05-17] MEDS: IBUPROFEN 600 MG TAB PO PRN (08:21)
[2023-05-17] MEDS ORDERED: NIFEdipine EXTENDED REL 30 MG TABCR PO SCH ×2 (09:00)
--- NOTE | 2023-05-19 12:53 | Anesthesiology Progress Note ---
Date of Service May 19, 2023 Anesthesia Post Procedure Pain Intensity Abdomen: Pain Intensity: 2 Medial Head: Pain Intensity: 0 Transfer of Care Handoff Completed per policy Notes Mental Status: alert / awake / arousable Patient Amnestic to Procedure: Yes Nausea / Vomiting: adequately controlled Pain: adequately controlled Airway Patency, RR, SpO2: stable & adequate BP & HR: stable & adequate Hydration State: stable & adequate Anesthetic Complications: no major complications apparent
--- NOTE | 2023-05-20 10:56 | Discharge Summary ---
Date of Service May 20, 2023 Admission HPI Per Admitting Provider Patient is a 37 yo female EDC [birth year] who presented to the office for her scheduled NSt at 35 4/7 weeks and was found to have elevated BP of 148/102 after resting for at least 5 minutes. she was also found to have 2+ proteinuria. She denies any PET symptoms. She did have a mild headache this weekend which resolved without meds. Elevated BP and 2+ proteinuria is confirmed on evaluation in L&D. She received 20mg Nifedipine after 2 BP's were in the severe range. BP then came down to 160/92 and on repeat it was 133/82. was complicated by obesity and AMA status. testing has been reassuring. GBS status is unknown as it was to be done next week. Admission Exam (Per Admitting) Constitutional WD/WN, vitals as above Psychiatric A+Ox3, euthymic affect Genitourinary OB Exam Abdomen: + fundal height Manual OB Exam: + cervical dilation + 5 cm, + cervical effacement + 80%, + station + high (-3) and + amniotic fluid + clear (AROM ) OB Exam Monitor Tracing: + external FHT monitor used, + external uterine monitor used, + category I and + normal FHT variability Discharge Data Consultations 05/12/23 17:17 Consult Anesthesiology Stat 05/14/23 00:15 Consult Anesthesiology Stat Procedures Performed Operation Date: 05/14/23 00:15 Actual Procedures p Section in LD delivery of live female child at 0109(Not Applicable) - Marjorie Galarza MD, [facility] [place] Hospital Course (1) care following delivery: The patient had been admitted for induction of labor because of preeclampsia and had been started on mag sulfate for seizure prophylaxis. Her PIH labs were wi thin normal limits except for her urine protein creatinine ratio which was 6.8. Despite maximum levels of Pitocin per protocol including 2 periods of washout, we could not obtain an adequate contraction pattern to progress past 5 cm dilated. Therefore section was recommended and performed without complications. She did not require any antihypertensives during her labor X except for an initial dose of nifedipine on admission. however she required Procardia as her blood pressures became elevated. She was discharged eventually on nifedipine XR 90 mg daily. (2) Pre-eclampsia in third trimester: Plan Vital Signs reviewed and WNL. (Tmax at 37.1), BPs have continued to be elevated up to SBP of 160 Hemoglobin Reviewed. 12.1 (05/16/23) 10.4 (05/16/23). Blood Type: A+, GBS-, Rubella Immune. Pt is doing well clinically. Encourage Ambulation, Monitor and Control pain with Motrin PRN, Resume regular diet, Monitor Lochia Encourage Breast Feeding. Pt counselled on discharge instructions. Discharge instructions were placed but is contingent upon patient's continuing BPs on nifedipine. 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 [Primary Care Provider] - Diet: Regular Addtl Attending Provider Instructions: ACTIVITY RECOMMENDATIONS: * Gradual return to full activity over the next 2-3 weeks. * No lifting - nothing heavier than baby over the next 2-3 weeks. * Do not engage in vigorous exercise, sexual activity or sports until cleared by your physician. * Do not drive or operate any motorized equipment until cleared by your physician. * You may shower/bathe daily. MEDICATIONS: For discomfort or pain, you may use Acetaminophen (Tylenol), Ibuprofen (Advil), or Naproxen (Aleve) following the package directions. For constipation you may use Colace following the package directions. BREAST CARE: If you are not breast feeding: * Wear a supportive bra 24 hours a day for one to two weeks. * Avoid stimulating your breasts and nipples as much as possible during the first few weeks after delivery. * When taking a shower, have the warm water hit your back, not breasts. * When your breasts feel full, apply ice packs. Usually three to four times a day helps ease the discomfort. * Take a mild pain medication (Tylenol / Motrin) when you are uncomfortable. If breast feeding: * Use breast milk to lubricate nipples. Lansinoh cream may be used for sore nipples. You do not need to remove cream prior to breast feeding. If using a d ifferent brand of cream, check the label for directions regarding removal of cream prior to nursing. * Wear a supportive bra. * If having problems with breasts or breast feeding, call a apprenticeship consultant or your health care provider. EPISIOTOMY CARE: After delivery, if you have an episiotomy (stitches), the following steps will ease discomfort and aid healing. * For the first 24 hours after delivery, place ice packs next to your episiotomy to help reduce swelling. * After the first 24 hour-period, sitz baths, either portable or in the tub, are suggested. A shower with a shower arm sprayed over the episiotomy may be comforting. * Krystal care should be done after each voiding and bowel movement. Squirt warm water from a plastic bottle over the perineum (region of the body between the anus and urinary opening) and pat dry. * Use Dermoplast to ease discomfort. Shake container. Laie directly over the episiotomy. Place a Tucks on a clean sanitary pad next to your episiotomy. SPECIAL CARE INSTRUCTIONS: When you are discharged from the hospital, it is important for you to follow the instructions listed below: * During the first week at home, you should be able to care for yourself and your baby. In addition, the usual light household activities are encouraged. * Limit your activities to the way you feel. Do not try to clean the house or move furniture. Be sensible. * If you actively engage in sports and have done so up until the time of your delivery, you may resume these activities as soon as you feel able. This may take up to one month or even longer. Use good judgment. * Continue to take your vitamins for at least six weeks after the of your baby. * Your diet need not be limited unless you were on a special diet before your delivery. Breast-feeding mothers need around 2500 calories per day and at least 64-80 ounces of fluid per day (8 to 10 glasses). * You should eat foods from the four major food groups. Crash diets or fad diets are to be avoided. Eating lean meats, fresh fruits and vegetables, low-fat dairy products, high fiber foods and a regular exercise program, will help you get back to your pre- weight without putting your health at risk. * Constipation is sometimes a problem after delivery. Take a mild laxative as needed. If breast feeding, Milk of Magnesia is acceptable to use. You may use a suppository or Fleets enema if no episiotomy. * A daily shower or tub bath is suggested. Be sure to thoroughly and gently dry the perineum. * A bloody vaginal discharge will usually continue until around four weeks post . A small amount of bleeding may continue for as long as six weeks. Vaginal discharge changes from the bright red bleeding after delivery to pink then brownish and finally yellowish-pink before becoming white and disappearing. * Bleeding may increase with activity. Your first period may come in 4-8 weeks. If you are breast feeding, your period may be delayed even longer. * [place] (sex) can begin whenever both you and your partner feel comfortable and do not have any form of genital infection. It is recommended that you wait at least six weeks for internal and external healing to occur. If you have questions, please talk to your health care practitioner. A condom should be used to prevent infection and . * Foreplay, gentle intercourse and lubrication is very important the first several times to prevent pain. A water-based lubricant such as K-Y jelly or Astroglide may be used. * If you have RH negative blood and your baby is RH positive, you will receive RHOGAM by injection prior to discharge. The nurse will give you a card to keep with you that has the date and place that you received RHOGAM after delivery. * During your care, you had a Rubella screen done to check for the presence of rubella antibodies in your blood. If your test was negative, you will receive a Rubella vaccine prior to discharge. This vaccine may cause a fever, soreness at the injection site and flu-like symptoms. If these symptoms persist, notify your health care practitioner. is not advised for one month after a Rubella vaccine. * Verbalizes understanding of car seat law as reviewed with patient nursing. * Car Seat hand-out given and reviewed with patient by nursing. * Shaken baby information reviewed with patient by nursing. Call you doctor if: * Heavy bleeding (saturating several pads an hour) or passing clots the size of your fist. * A fever >101 degrees F (38.3 degrees C) on two occasions four hours apart and/or chills. * Unusual pain in the pelvic or vaginal areas. * "Baby Blues" lasting longer than two weeks. If you have any questions or concerns, call your health care practitioner at . FOLLOW UP VISIT: * Please call the office at to schedule a 6 week examination. It is important you keep this appointment. It is important for you to make arrangements for either yearly or twice yearly check-ups thereafter. Pending Studies at Discharge: No Stand-Alone Forms: My [facility] [employer], Smoking Cessation Medications and DC Order Prescriptions: Continued prenat.vits,valerie,ayw-nvit-loyvs Tablet 1 tab PO DAILY cholecalciferol (vitamin D3) 10,000 PO magnesium PO citalopram 20 mg tablet 10 mg PO DAILY famotidine 10 mg Tablet 10 mg PO DAILY No Action nifedipine [Procardia XL] 30 mg tablet extended release 24hr 90 mg PO QAM Qty: 90 2RF oxycodone-acetaminophen [Percocet] 5-325 mg tablet 1 tab PO Q4H PRN (Reason: pain) Qty: 14 0RF Discharge Orders: Discharge Order (Routine); Ordered 05/17/23 Ordered By: Gabe Klein/Other Patient Handouts: Understanding Deep Vein Thrombosis, Depression, Understanding Preeclampsia Admission Data Admit Date/Time: 05/12/23 17:17 Attending Provider: Marjorie Galarza Admit Provider: Marjorie Galarza Primary Care Provider: Marilynn Avila Other Providers: Jeffery Ernandez ; Valdo Rubio Other Interventions: Discharge Summary Assessment (RN) Last Done: 05/17/23 13:58 Coding Level of Care Code 00811 IN/OBS DISCH 30 MIN/LESS Diagnoses care following delivery Z39.2 Pre-eclampsia in third trimester O14.93
== END 2023-05-17 15:10 | disposition home or self-care (01) | DRG 788 ==
LOC: OPB 14:13 → 4S1 14:14 → 4E2 05-15 01:35